=== PATIENT | male | born 1955 | race Caucasian/White ===

== ENCOUNTER → 2018-03-22 11:58 | Outpatient (CLI) | payer MEDICARE, SELFPAY ==
--- NOTE | 2018-03-22 12:06 | XR_ITS ---
XR chest 2V HISTORY: ITS.REASON: PNEUMONITIS, previous smoker ORDERING PHYSICIAN: Douglas Wang MD PATIENT AGE: 62 years COMPARISON: None FINDINGS: There are no previous exams available for comparison. The heart size is unremarkable. There is coarsening of bronchovascular markings with prominence of the interstitium consistent with smoking-related lung disease. There is patchy density in the left midlung laterally which could be due to an area of superimposed infiltrate versus chronic change. Cannot ascertain further without old films. Calcified nodes are present in the subcarinal region. No acute bony anomalies. IMPRESSION: Interstitial changes with patchy infiltrate versus fibrosis in the left midlung laterally
== END ==
PROVIDERS: PCP Emergency Medicine; Visit Provider Emergency Medicine
DX: J18.9 Pneumonia, unspecified organism (principal)
CPT/HCPCS: 71046

== ENCOUNTER 2020-01-07 14:05 | Emergency (ER) | payer MEDICARE, SELFPAY ==
[2020-01-07 14:17] VITALS: BP 152/106; PULSE 65; RESP 20; TEMP 36.8; O2SAT 97; BMI 31.3
--- NOTE | 2020-01-07 14:31 | HMH.EDUTC ---
[facility] Disposition Clinical Impression: Exposure to COVID-19 virus Disposition: Home, Self-Care Condition on Discharge: Good Instructions: Preventing the Spread of Coronavirus Discharge Instructions Additional Instructions: Drink plenty of fluids. Take tylenol for pain or fever. Follow up with your regular doctor. GO TO THE ER FOR ANY WORSENING SYMPTOMS FOLLOW THE DIRECTIONS ON THE COVID-19 HAND OUT THAT WE GAVE YOU REGARDING SELF-ISOLATION UNTIL YOU KNOW YOUR COVID-19 RESULTS Referrals: Douglas Wang MD [Primary Care Provider] - Time of Disposition: 14:33 Medical Decision Making - Medical Records Medical records reviewed: No: I reviewed the patient's medical records. - Tahir Inquiry Pt receiving controlled substance: No Vital Signs: 01/07/20 14:17 01/07/20 14:38 Temperature 98.3 F 98.3 F Temperature Source Oral Pulse Rate 65 Pulse Rate [Left Brachial] 65 Respiratory Rate 20 20 Blood Pressure 152/106 H Blood Pressure [Left Arm] 152/106 H Blood Pressure Mean [Left Arm] 121 Blood Pressure Source [Left Arm] Automatic Cuff Blood Pressure Position [Left Arm] Sitting 02 Sat by Pulse Oximetry 97 Oxygen Delivery Method Room Air [facility] HPI - General Stated complaint: covid exposure Time Seen by Provider: 01/07/20 14:31 Mode of Arrival: Ambulatory Source of Information: Patient Limitations: No Limitations Description of Symptoms (Recalled from Triage Doc. by RN): PATIENT REQUESTING COVID TEST. STATES LAST MONDAY HE WAS EXPOSED TO HIS DAUGHTER AND GRANDDAUGHTER WHO WERE POSITIVE. PATIENT DENIES ANY SYMPTOMS AT THIS TIME HEENT Symptoms (Recalled from RN notes): No Resp Symptoms (Recalled from RN notes): No Skin Symptoms (Recalled from RN notes): No MS Symptoms (Recalled from RN notes): No Functional Status (Recalled from RN notes): WNL - History of Present Illness Provider Complaint: He has been exposed to COVID-19 by being around his daughter and grand daughter. He denies any symptoms. - Related Data Allergies Allergy/AdvReac Type Severity Reaction Status Date / Time acetaminophen [From Lortab] Allergy Verified 01/07/20 14:22 hydrocodone [From Lortab] Allergy Verified 01/07/20 14:22 Penicillins Allergy Verified 01/07/20 14:22 - Worker's Comp Is this a Worker's Comp case?: No [facility] History - Hepatitis A Screen Drug use history?: No High risk sexual behaviors?: No History of sexually transmitted infection?: No Currently employed?: No Childcare worker?: No Do you have indoor plumbing?: Yes Do you have electricity?: Yes Attestation statement:: This patient has been screened for Hepatitis A risk factors. I have reviewed the patient's past medical history: Yes - Social History Alcohol Intake: current Occupational Status: other ROS Obtained: Yes All systems reviewed & no additional complaints - Constitutional Constitutional: Denies chills, Denies fever(s) - Eyes Eyes: Denies eye discharge - ENT Ears, Nose, Mouth, and Throat: Denies sore throat - Cardiovascular Cardiovascular: Denies chest pain - Respiratory Respiratory: No chest congestion, No cough Physical Exam - General General appearance: alert, in no apparent distress - Head Head exam: atraumatic, normocephalic, normal inspection - Eye Eye exam: Present: normal appearance, PERRL, EOMI - ENT ENT exam: Present: normal exam, normal oropharynx, mucous membranes moist, TM's normal bilaterally, normal external ear exam - Neck Neck exam: Present: normal inspection, full ROM, trachea midline. Absent: meningismus, lymphadenopathy - Chest Chest inspection: Present: normal inspection, symmetric chest wall rise. Absent: tenderness - Respiratory Respiratory exam: Present: normal lung sounds bilaterally. Absent: respiratory distress - Cardiovascular Cardiovascular exam: Present: regular rate, normal rhythm. Absent: JVD - Abdominal Exam Abdominal exam: Present: soft, normal
[2020-01-07 14:38] VITALS: BP 152/106; PULSE 65; RESP 20; TEMP 36.8; O2SAT 97
== END 2020-01-07 14:40 | disposition home or self-care (01) ==
PROVIDERS: Emergency Provider Nurse Practitioner Family; PCP Emergency Medicine
DX: Z20.828 Contact with and (suspected) exposure to other viral communicable diseases (principal); Z88.0 Allergy status to penicillin; Z88.5 Allergy status to narcotic agent
CPT/HCPCS: G0463; 99201; U0003

== ENCOUNTER → 2020-11-17 18:30 | Outpatient (CLI) | payer MEDICARE, SELFPAY ==
[2020-11-17 19:26] LABS: Basophils # 0.1 K/mm3 (0-0.2); Basophils % 1.1 % (0.1-2.0); Eosinophils # 0.2 K/mm3 (0.0-0.4); Eosinophils % 1.9 % (0.1-12.0); Hematocrit 47.2 % (42.0-52.0); Hemoglobin 15.8 g/dL (14.1-18.0); Lymphocytes # 2.9 K/mm3 (0.7-4.5); Lymphocytes % 28.2 % (10-50); Mean Corpuscular HGB Conc 33.4 g/dL (31.8-35.4); Mean Corpuscular Hemoglobin 31.1 pg (27.0-31.2); Mean Corpuscular Volume 93.2 fl (80-94); Mean Platelet Volume 10.1 fl (7.4-10.4); Monocytes # 0.7 K/mm3 (0.1-1.0); Monocytes % 6.7 % (1.7-9.3); Neutrophils # 6.5 K/mm3 (1.8-7.8); Platelet Count 185 K/mm3 (142-424); Red Blood Count 5.07 M/mm3 (4.60-6.20); Red Cell Distribution Width 14.6 % (11.5-17.5); White Blood Count 10.4 K/mm3 (4.8-10.8)
[2020-11-17 19:37] LABS: Alanine Aminotransferase 37 U/L (12-78); Albumin/Globulin Ratio 1.3 (1.1-1.8); Alkaline Phosphatase 102 U/L (38-126); Anion Gap 14.5 mEq/L (5-15); Aspartate Amino Transferase 38 U/L (17-59); Bilirubin,Total 0.4 mg/dl (0.2-1.3); Blood Urea Nitrogen 15 mg/dl (9-20); Calcium 8.8 mg/dl (8.4-10.2); Carbon Dioxide 26 mmol/L (22.0-30.0); Chloride 105 mmol/L (98-107); Chol/HDL Ratio 4.2 (1-3.5); Cholesterol 191 mg/dl (140-200); Estimated Glomerular Filt Rate 75 ml/min (>60); GFR (African American) 90 ML/MIN (>60); Globulin 3.1 g/dL (1.3-3.2); Glucose 124 mg/dl (74-100); HDL Cholesterol 45 mg/dl (40-60); Potassium 4.5 mmoL/L (3.5-5.1); Sodium 141 mmol/L (136-145); Total Protein,Serum 7.1 g/dl (6.3-8.2); Triglycerides 181 mg/dl (30-150); VLDL Cholesterol 36 mg/dL (0-40)
[2020-11-17 19:48] LABS: Direct LDL Cholesterol 115.82 mg/dL (100-129)
[2020-11-17 19:52] LABS: Erythrocyte Sedimentation Rate 16 mm/hr (0-20)
[2020-11-17 19:53] LABS: Free T4 (Free Thyroxine) 0.97 ng/dl (0.78-2.19)
[2020-11-17 19:54] LABS: 25-OH Vitamin D, Total 20.4 ng/mL (30-100)
[2020-11-17 20:07] LABS: Prostate Specific Ag Screen 0.3 ng/ml (0.0-4.0); Thyroid Stimulating Hormone 1.83 uIU/mL (0.465-4.68)
== END ==
PROVIDERS: Visit Provider Emergency Medicine
DX: R53.83 Other fatigue (principal); Z12.5 Encounter for screening for malignant neoplasm of prostate; E55.9 Vitamin D deficiency, unspecified; Z20.828 Contact with and (suspected) exposure to other viral communicable diseases; E78.5 Hyperlipidemia, unspecified
CPT/HCPCS: 80053; 80061; 82306; 84439; 84443; 85025; 85651; G0103

== ENCOUNTER → 2021-03-17 15:18 | Outpatient (CLI) | payer MEDICARE, SELFPAY ==
--- NOTE | 2021-03-17 15:22 | CT_ITS ---
PROCEDURE: CT LUNG SCREENING CLINICAL INDICATION: lung cancer screening COMPARISON: No exams were available for comparison TECHNIQUE: The exam was performed on a GE Light Speed [address] scanner using 2.90 mGy CTDI. A low dose helical CT CHEST was performed on a multi-detector scanner. All CT scans at the facility use one or more dose reduction, viz: automated exposure control, ma/kV adjustment per patient size (including targeted exams where dose is matched to indication, i.e. head), or iterative reconstruction technique. The LDCT was performed in a facility that meets the criteria for the screening program. Data regarding this exam was submitted to ACR which is an approved registry. The order for this exam indicates that it came as a result of a lung cancer screening counseling shard decision-making visit that included all the elements required of such a visit including smoking cessation. The radiologist interpreting this exam meets the CMS criteria for the LDCT lung cancer screening program. The exam is reported using the Lung-RADS classification scale and reported to the ACR registry. NOTE: This study was performed for the specific purposes of lung cancer screening and is not an alternative to diagnostic chest CT. RADIATION DOSE: CTDI vol(CT dose Index-volume) = 2.90mG DLP (Dose Length Product) = 96.38 FINDINGS: COPD with paraseptal and centrilobular emphysematous changes. Scattered areas of scarring. Evidence of old granulomatous disease. Mild pulmonary fibrosis in the upper lobes anteriorly and in the lung bases posteriorly. 7 mm noncalcified nodule left lower lobe image 53 series 601 and image 62 series 4. 4 mm noncalcified nodule left lower lobe posteriorly 61/4 Small bilateral axillary lymph nodes. Small mediastinal lymph nodes. Calcified subcarinal right hilar nodes. OTHER FINDINGS: No other pertinent findings evident. IMPRESSION: Lung-RADS Category 3 Probably Benign regarding left lower lobe nodules Follow-up: [address] Chest without contrast. 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
== END ==
PROVIDERS: PCP Emergency Medicine; Visit Provider Emergency Medicine
DX: Z87.891 Personal history of nicotine dependence (principal); Z12.2 Encounter for screening for malignant neoplasm of respiratory organs
CPT/HCPCS: 71271

== ENCOUNTER → 2021-03-23 07:51 | Outpatient (CLI) | payer MEDICARE, SELFPAY ==
--- NOTE | 2021-03-23 07:53 | US_ITS ---
APPROVED REPORT Exam Type: Ankle to Brachial Index Personal Care Worker: Yadira Kapadia CRT Indications Claudication: Rest Pain: Risk Factors Hyperlipidemia Diabetes History of Smoking Pressures/Indices Right Indices Left Indices Brachial 138.00 mmHg Brachial 152.00 mmHg Low Thigh 145.00 mmHg 0.95 Low Thigh 140.00 mmHg 0.92 Calf 164.00 mmHg 1.08 Calf 157.00 mmHg 1.03 Ankle(PT) 171.00 mmHg 1.13 Ankle(PT) 173.00 mmHg 1.14 Ankle(DP) 168.00 mmHg 1.11 Ankle(DP) 165.00 mmHg 1.09 Digit 147.00 mmHg 0.97 Digit 106.00 mmHg 0.70 Findings R JEANETTE 1.1 L JEANETTE 1.1 T JEANETTE 1.1 L TBI 0.7 Normal Waveforms Normal pulses Conclusion R JEANETTE 1.1 L JEANETTE 1.1 T JEANETTE 1.1 L TBI 0.7 Normal Waveforms Normal pulses Normal appearing resting noninvasive lower extremity arterial study. Electronically signed by : Dain Peace MD 03/23/2021 17:39:19
== END ==
PROVIDERS: PCP Emergency Medicine; Visit Provider Emergency Medicine
DX: I73.9 Peripheral vascular disease, unspecified (principal)
CPT/HCPCS: 93923

== ENCOUNTER → 2021-05-03 07:13 | Outpatient (CLI) | payer MEDICARE, SELFPAY ==
--- NOTE | 2021-05-03 | CA_ITS ---
APPROVED REPORT Exam: Pharmacologic Technologist: Niki Meza Ht: 5 ft 7 in Wt: 204 lbs BSA: 2.04 m2 HR: 48 bpm BP: 137/82 mmHg Indications: Chest pain, Heart murmur Medical History Medications: Omeprazole,,,,, Gabapentin,,,,, Vitamin D3,,,,, TAMSULOSIN,,,,, Celecoxib,,,,, Sertraline,,,,, Stress Test Details Test: LEXISCAN HR Resting HR: 57 bpm Max Heart Rate (APMHR): 154.315025 bpm Max HR Achieved: 94 bpm Target HR (85% APMHR): 130.325376 bpm % of APMHR: 61.04 Recovery HR: 71 bpm BP Resting BP: 137.0/82.0 mmHg Max BP: 144.0/78.0 mmHg Recovery BP: 135.0/82.0 mmHg ECG Resting ECG: Sinus Bradycardia Clinical Exercise duration: 04:00 min Highest Stage Achieved: Stress ECG Conclusion Lexiscan portion complete. Patient complained of shortness of breath during peak infusion. Symptoms: Shortness of breath during peak infusion, resolved in recovery. No chest pain. Arrhythmias/Ectopy: No ectopy ST-T Changes: Less than 1.[address] depression. Conclusion: Images to follow. Test Summary REST . . . . . . . Resting REST 04:10 . . 57 . 137/ 82 . . Stage 1 . . . . . . . Myoview Injected Stage 1 01:00 . . 89 . . . . Stage 2 01:00 . . 89 . . . . Stage 3 01:00 . . 77 . 138/ 80 . . Stage 4 01:00 . . 75 . 139/ 84 . Stop exercise at 04:00 RECOVERY 01:00 . . 72 . 139/ 83 . . RECOVERY 02:00 . . 74 . 139/ 83 . . RECOVERY 03:00 . . 72 . 135/ 82 . . RECOVERY 04:00 . . 74 . 135/ 82 . . Electronically signed by : Ramiro Chappell MD 05/03/2021 20:59:18
--- NOTE | 2021-05-03 07:13 | NM_ITS ---
APPROVED REPORT Exam: Nuclear Stress Test Indication: chest pain Patient Location: Outpatient Stress Tech: Niki Meza [place] Tech:EVGENY Donahue RT(R)(N) Ht: 5 ft 9 in Wt: 200 lbs HR: 48 bpm BP: 137/82 mmHg BSA: 2.07 m2 BMI: 29.5 History: chest pain Procedure: Patient received a 0.4 mg of intravenous Lexiscan, resting heart rate 48 bpm, resting blood pressure 137/82 mmHg, with Lexiscan maximum heart rate achived was 89 bpm which is Less than 85 % of the maximum predicted heart rate and blood pressure was 144/78 mmHg. With Lexiscan, patient denied any complaint of chest pain. Electrocardiogram Resting electrocardiogram shows sinus rhythm, with Lexiscan there is less than 1.[address] segment depression noted from the baseline EKG. The EKG portion of the Lexiscan is nondiagnostic. Cardiac Stress and Resting SPECT Images: Cardiac Stress and Resting SPECT images were obtained using technetium 99m Myoview 32.7 mCi stress and 10.66 mCi at rest. Gated SPECT for analysis of segmental wall motion and calculation of the ejection fraction also done. Cardiac stress and resting SPECT images show uniform myocardial activity without segmental perfusion abnormality, computer derived ejection fraction is 58% with no regional wall motion abnormality, right ventricle is normal size and contractility. Conclusion: 1. The EKG portion of the Lexiscan is nondiagnostic. 2. No scintigraphic evidence of reversible ischemia seen, computer derived ejection fraction 58% with no regional wall motion abnormality, right ventricle is normal size and contractility. 3. Normal Lexiscan Myoview study. Electronically signed by : Ramiro Chappell MD 05/03/2021 21:04:27
--- NOTE | 2021-05-03 07:21 | CA_ITS ---
APPROVED REPORT EXAM: Comprehensive 2D, Doppler, and color-flow Echocardiogram Regulatory Administrator: Yadira Kapadia CRT Ht: 5 ft 7 in Wt: 204lbs BSA: 2.04 BP: 130/82 mmHg Indications: Chest Pain, COPD, Murmur, Shortness of Breath, Obesity, GERD, Alcohol use, marijuana use 2D Dimensions LVOT 1.99 cm (M/F) 1.5-2.5 LA Volume 40.50 mL LA Volume Index 19.90 mL/m2 (M/F) 16-34 M-Mode Dimensions RVDd 2.68 cm (0.9-2.6) LA Diam 4.02 cm (1.9-4.0) LVDd 5.36 cm (3.5-5.7) Ao Diam 4.51 cm (2.0-3.7) LVDs 3.54 cm (3.5-5.7) IVSd 1.29 cm (0.6-1.1) PWd 0.50 cm (0.6-1.1) EF (Teich) 62.30% FS 34.00% EDV (Teich) 138.90 mL TAPSE 2.56 (<1.7) ESV (Teich) 52.30 mL LV Diastology E Decel Time 253.00 (160-240 msec) E/A Ratio 1.09 MED E' 7.80 (< 7 cm/sec) MED A' 10.70 cm/s E'/MED E' Ratio 7.42 (>14) LAT E' 9.10 (<10 cm/sec) LAT A' 9.70 cm/s E/LAT E' Ratio 6.36 (>14) Aortic Valve AO Peak GR. 7.00 mmHg Mitral Valve MV A Velocity 53.00 (40-130 cm/s) E/A Ratio 1.09 MV Decel. Time 253.00 (160-240 ms) Pulmonary Valve PV Peak Velocity 97.00 (50-150 cm/s) Tricuspid Valve TR P. Velocity 220.00 cm/s RAP Estimate 10.00 mmHg RVSP 29.40 mmHg Left Ventricle Left atrium is mildly enlarged, left ventricle is normal size, mild concentric left ventricular hypertrophy, visually estimated ejection fraction 55% with no regional wall motion abnormality, diastolic parameters are inconclusive. Right Ventricle Right atrium right ventricle mildly enlarged with normal contractility. Aortic Valve Aortic valve is minimally thickened and fibrosed, there is no aortic stenosis or aortic insufficiency. Mitral Valve Mitral valve grossly normal, there is trace mitral regurgitation. Tricuspid Valve Tricuspid valve grossly normal, there is trace tricuspid regurgitation, tricuspid regurgitation jet velocity is inadequate for calculation of the right ventricular systolic pressure. Pulmonic Valve Pulmonic valve is poorly visualized. Great Vessels Aortic root is normal size. Inferior vena cava is poorly visualized. Pericardium No significant pericardial effusion noted. Conclusion 1. Mild biatrial enlargement, normal left ventricular size, mild concentric left ventricular hypertrophy, visually estimated ejection fraction 55% with no regional wall motion abnormality, diastolic parameters are inconclusive. 2. Mildly enlarged right ventricle with normal contractility. 3. Trace mitral and tricuspid regurgitation. 4. No significant pericardial effusion noted. 5. Inferior vena cava is poorly visualized. Electronically signed by : Ramiro Chappell MD 05/03/2021 21:44:30
== END ==
PROVIDERS: PCP Emergency Medicine; Visit Provider Emergency Medicine
DX: R07.9 Chest pain, unspecified (principal); R01.1 Cardiac murmur, unspecified
CPT/HCPCS: 78452; 93017; 93306; A9502; J2785

== ENCOUNTER → 2021-05-28 08:35 | Outpatient (CLI) | payer MEDICARE, SELFPAY ==
--- NOTE | 2021-05-28 08:35 | MR_ITS ---
FINAL REPORT CLINICAL HISTORY: CHRONIC BACK PAIN. NKI. PAIN RUNS DOWN LEGS CAUSING WEAKNESS. FINDINGS: Multiplanar MR imaging of the lumbar spine was performed without contrast. On the sagittal T2-weighted images, there is abnormal decreased signal throughout the lumbar discs. There is moderate facet hypertrophy in the lower lumbar spine. The vertebrae are of normal height. The vertebral alignment is normal. L1-2: Mild diffuse disc bulge is present with mild bilateral neural foraminal narrowing. L2-3: Moderate diffuse disc bulge is present. There is moderate right and mild to moderate left neural foraminal narrowing. L3-4: Moderate diffuse disc bulge is present with moderate bilateral neural foraminal narrowing. L4-5: Moderate diffuse disc bulge is present with moderate to high-grade bilateral neural foraminal narrowing. L5-S1: Mild diffuse disc bulge is present with mild to moderate bilateral neural foraminal narrowing. IMPRESSION: Multilevel diffuse disc bulges, most evident at L4-5 with moderate to high-grade bilateral neural foraminal narrowing. Reviewed, Interpreted and Dictated by Scott Diane MD Transcribed by Zulay Ty Authenticated by Scott Diane MD on 05/28/2021 11:24:28 AM [facility]
== END ==
PROVIDERS: PCP Emergency Medicine; Visit Provider Emergency Medicine
DX: M54.50 Low back pain, unspecified (principal)
CPT/HCPCS: 72148; 76376

== ENCOUNTER → 2021-07-19 10:05 | Outpatient (CLI) | payer MEDICARE, SELFPAY ==
[2021-07-19 10:50] VITALS: PULSE 61
== END ==
PROVIDERS: PCP Emergency Medicine; Visit Provider Internal Medicine Pulmonary Disease
DX: R06.00 Dyspnea, unspecified (principal)
CPT/HCPCS: 94060; 94618; 94640; 94727; 94729

== ENCOUNTER → 2021-09-01 07:46 | Outpatient (CLI) | payer MEDICARE, SELFPAY ==
--- NOTE | 2021-09-01 07:55 | MR_ITS ---
FINAL REPORT CLINICAL HISTORY: memory loss, encephalopathy FINDINGS: Multiplanar MR imaging of the brain was performed without contrast. There is mild age-appropriate atrophy. There are scattered foci of increased T2 signal in the cerebral white matter that have a nonspecific appearance but likely represent moderate to severe chronic ischemic/gliotic changes. There is no evidence of intracranial hemorrhage or mass. No abnormal ventricular dilatation is identified. No abnormal extra-axial fluid collection is seen. No abnormality is seen on the diffusion weighted images. The posterior fossa and brainstem are unremarkable. Normal major vessel vascular flow voids are seen. IMPRESSION: Age-appropriate atrophy and moderate to severe chronic ischemic/gliotic changes. No acute intracranial abnormality. Reviewed, Interpreted and Dictated by Eligio Nayak III, MD Transcribed by Edwin Julien Authenticated by Eligio Nayak III, MD on 09/01/2021 09:53:02 AM [facility]
[2021-09-01 10:16] LABS: Basophils # 0.2 K/mm3 (0-0.2); Basophils % 2.2 % (0.1-2.0); Eosinophils # 0.2 K/mm3 (0.0-0.4); Eosinophils % 2.3 % (0.1-12.0); Hematocrit 55.1 % (42.0-52.0); Hemoglobin 17.9 g/dL (14.1-18.0); Lymphocytes # 2.1 K/mm3 (0.7-4.5); Lymphocytes % 20.5 % (10-50); Mean Corpuscular HGB Conc 32.4 g/dL (31.8-35.4); Mean Corpuscular Hemoglobin 32.8 pg (27.0-31.2); Mean Corpuscular Volume 101.2 fl (80-94); Mean Platelet Volume 8.5 fl (7.4-10.4); Monocytes # 0.5 K/mm3 (0.1-1.0); Monocytes % 4.9 % (1.7-9.3); Neutrophils % 70.2 % (37.0-80.0); Platelet Count 221 K/mm3 (142-424); Red Blood Count 5.44 M/mm3 (4.60-6.20); Red Cell Distribution Width 14.3 % (11.5-17.5)
[2021-09-01 10:37] LABS: Ammonia < 9 umol/L (9-30)
[2021-09-01 12:38] LABS: Alanine Aminotransferase 42 U/L (12-78); Albumin Level 4.2 g/dl (3.5-5.0); Albumin/Globulin Ratio 1.1 (1.1-1.8); Alkaline Phosphatase 95 U/L (38-126); Anion Gap 11.8 mEq/L (5-15); Aspartate Amino Transferase 46 U/L (17-59); Bilirubin,Total 0.4 mg/dl (0.2-1.3); Blood Urea Nitrogen 11 mg/dl (9-20); Calcium 9.5 mg/dl (8.4-10.2); Carbon Dioxide 29 mmol/L (22.0-30.0); Chloride 103 mmol/L (98-107); Estimated Glomerular Filt Rate 75 ml/min (>60); GFR (African American) 90 ML/MIN (>60); Globulin 3.8 g/dL (1.3-3.2); Glucose 107 mg/dl (74-100); Potassium 4.8 mmoL/L (3.5-5.1); Sodium 139 mmol/L (136-145)
[2021-09-01 13:18] LABS: Hemoglobin A1C 5.5 % (4.0-6.0)
[2021-09-01 13:43] LABS: Vitamin B12 722 pg/mL (239-931)
[2021-09-02 12:13] LABS: Rapid Plasma Reagin Ab Titer Non Reactive (NonRea<1:1)
[2021-09-02 14:37] LABS: Anti-Centromere B Antibodies <0.2 AI (0.0-0.9); Anti-DNA (DS) Ab Qn 1 IU/mL (0-9); Anti-Jo-1 <0.2 AI (0.0-0.9); Anti-Smith Antibody <0.2 AI (0.0-0.9); Antichromatin Antibodies <0.2 AI (0.0-0.9); Antiscleroderma-70 Antibodies <0.2 AI (0.0-0.9); RNP Antibodies <0.2 AI (0.0-0.9); Sjogren's Anti-SS-A 0.5 AI (0.0-0.9); Sjogren's Anti-SS-B <0.2 AI (0.0-0.9)
[2021-09-08 22:08] LABS: Vitamin B1 197.8 nmol/L (66.5-200.0)
== END ==
PROVIDERS: PCP Emergency Medicine; Visit Provider Nurse Practitioner Family
DX: G93.40 Encephalopathy, unspecified (principal); R41.3 Other amnesia; F10.10 Alcohol abuse, uncomplicated; R17 Unspecified jaundice; R73.9 Hyperglycemia, unspecified; F11.90 Opioid use, unspecified, uncomplicated
CPT/HCPCS: 36415; 70551; 80053; 82140; 82607; 82746; 83036; 84425; 84443; 85025; 86225; 86235; 86592; 95816

== ENCOUNTER → 2021-09-06 08:16 | Outpatient (POV) | payer MEDICARE, SELFPAY ==
[2021-09-06 08:51] VITALS: BP 130/96; PULSE 68; RESP 18; TEMP 36.3; O2SAT 95; BMI 33.3
--- NOTE | 2021-09-06 09:37 | HMH.PMCON ---
Assessment and Plan (1) Degenerative disc disease, lumbar Status: Acute Category: Medical Code(s): M51.36 - Other intervertebral disc degeneration, lumbar region (2) Facet arthropathy Status: Acute Category: Medical Code(s): M47.819 - Spondylosis without myelopathy or radiculopathy, site unspecified (3) Lumbar spondylosis Status: Acute Category: Medical Code(s): M47.816 - Spondylosis without myelopathy or radiculopathy, lumbar region (4) Bulging lumbar disc Status: Acute Category: Medical Code(s): M51.26 - Other intervertebral disc displacement, lumbar region - Assessment and plan all Dx Assessment and Plan for all problems:: Imaging: FINAL REPORT CLINICAL HISTORY: CHRONIC BACK PAIN. NKI. PAIN RUNS DOWN LEGS CAUSING WEAKNESS. FINDINGS: Multiplanar MR imaging of the lumbar spine was performed without contrast. On the sagittal T2-weighted images, there is abnormal decreased signal throughout the lumbar discs. There is moderate facet hypertrophy in the lower lumbar spine. The vertebrae are of normal height. The vertebral alignment is normal. L1-2: Mild diffuse disc bulge is present with mild bilateral neural foraminal narrowing. L2-3: Moderate diffuse disc bulge is present. There is moderate right and mild to moderate left neural foraminal narrowing. L3-4: Moderate diffuse disc bulge is present with moderate bilateral neural foraminal narrowing. L4-5: Moderate diffuse disc bulge is present with moderate to high-grade bilateral neural foraminal narrowing. L5-S1: Mild diffuse disc bulge is present with mild to moderate bilateral neural foraminal narrowing. IMPRESSION: Multilevel diffuse disc bulges, most evident at L4-5 with moderate to high-grade bilateral neural foraminal narrowing. Reviewed, Interpreted and Dictated by Scott Diane MD Transcribed by Zulay Ty Authenticated by Scott Diane MD on 05/28/2021 11:24:28 AM [facility] Plan: Patient has been having worsening low back pain for about a year and a half now. He has tried and failed other conservative therapies such as oral medication and home exercises with minimal relief of symptoms. He does have a positive Kemps test. His pain is worse with lumbar flexion, extension and rotation. He has some tenderness around the lumbar facets. We will schedule the patient for diagnostic medial branch blocks/facet injections at L3-L4 and L4-L5. Risks and benefits of the procedure have been explained to the patient. Patient would like to proceed with the procedure. He is not taking any blood thinners right now. Patient has been instructed to contact the clinic with any concerns before the next appointment. Dr. Martinez has reviewed this note and agrees with this plan of care. This note was dictated using voice recognition software and make contain errors or omissions. HPI - Data of Consult Patient: new to practice Consult date: 09/06/21 Requesting Physician: CRISTINE Barajas - Consult Narrative Reason for consult: low back pain History of present illness: Mr. Arroyo is a 65 year old male who presents today as a new patient. Patient is referred by Dr. Smith. Thank you for the referral. Patient presents today with worsening low back pain that started about a year and a half ago. Patient states that he has been having this nagging pain for several years but has gotten really worse more recently. He states that this is mostly localized in the low back. He does have some pain around his bilateral lower extremities but it could also be from his knees. Patient denies any recent falls or traumas or any other precipitating factors. This is worse with any lumbar flexion, extension and especially rotation. It is worse with any prolonged activity such as standing and walking. It does help whenever he sits down. Denies any loss of bowel and bladder function. He had a recent lumbar MRI that shows multilevel diffuse disc bulges, most lula
== END ==
PROVIDERS: Visit Provider Student in an Organized Health Care Education/Training Program
DX: M51.36 Other intervertebral disc degeneration, lumbar region (principal); M47.816 Spondylosis without myelopathy or radiculopathy, lumbar region; M51.26 Other intervertebral disc displacement, lumbar region; M19.90 Unspecified osteoarthritis, unspecified site
CPT/HCPCS: 99202; G0463

== ENCOUNTER 2021-09-10 11:28 | Day surgery (SDC) | payer MEDICARE, SELFPAY ==
[2021-09-10 11:51] VITALS: BP 136/74; PULSE 72; RESP 18; TEMP 36.6; O2SAT 98; BMI 33.3
--- NOTE | 2021-09-10 12:28 | P.PCN_ITS ---
- Procedure Date: 09/10/21 Time: 12:28 Anesthesiologist:: Darrick Pete CRNA Complications:: None Pre-procedure Diagnosis:: Degenerative disc disease lumbar spine. Lumbar facet arthropathy multilevel L3- 4, L4-5, L5-S1. Multilevel disc bulge lumbar spine. Lumbar radiculopathy symptoms. Post-procedure Diagnosis:: Same Indications for Procedure:: This patient is a pleasant 65-year-old male that comes to our injection clinic today for bilateral L3-4, L4-5 facet blocks. Patient's lumbar MRI shows multilevel disc bulge lumbar spine. Also facet arthropathy multilevels. He rates his back pain 7/10. Has some radicular symptoms into his hips. Procedure Details:: Informed consent was obtained and the risk and benefits of the procedure was explained to the patient. Patient was taken to the procedure room where noninvasive monitors were placed, including noninvasive blood pressure cuff as well as pulse oximeter. The area over the lumbar spine was cleansed using chlorhexidine as a cleansing solution. I anesthetized the skin and subcutaneous tissues with 1% Lidocaine. I placed 22-gauge spinal needles into the facet joint/ medial branches of [L3-L4, L4-L5 bilaterally. Needle placement was confirmed with fluoroscopy. After confirmation of needle placement, each site was injected with 1 mL of 1% lidocaine and 0.25 % Marcaine and 10 mg of Depo-Medrol. A total of 80 mg of depo medrol was used for bilateral medial branch blocks of [L3-L4, L4-L5 bilaterally. Patient tolerated the procedure without difficulty. There were no complications. Plan and Disposition:: Patient was discharged without incident.
[2021-09-10 12:31] VITALS: BP 148/56; PULSE 78; RESP 18; O2SAT 97
[2021-09-10 12:32] VITALS: BP 152/79; PULSE 57; RESP 20; O2SAT 96
[2021-09-10 12:47] VITALS: BP 141/87; PULSE 63; RESP 20; O2SAT 98
== END 2021-09-10 12:48 | disposition home or self-care (01) ==
LOC: SC.PAINP 11:30
PROVIDERS: PCP Emergency Medicine; Visit Provider Nurse Anesthetist, Certified Registered
DX: M51.37 Other intervertebral disc degeneration, lumbosacral region (principal); M51.16 Intervertebral disc disorders with radiculopathy, lumbar region; M54.06 Panniculitis affecting regions of neck and back, lumbar region; M47.896 Other spondylosis, lumbar region
CPT/HCPCS: 64493; 64494; J1040

== ENCOUNTER → 2021-09-16 08:11 | Outpatient (POV) | payer MEDICARE, SELFPAY ==
[2021-09-16 08:55] VITALS: BP 139/84; PULSE 70; RESP 20; TEMP 36.8; O2SAT 98; BMI 33.3
--- NOTE | 2021-09-16 09:03 | HMH.PAINSOAP ---
[facility] Pain Management SOAP Note Subjective:: Patient is a pleasant 65 yo male who presents today for follow up after an MBB bilaterally at L3-L4 and L4-L5. Patient is currently being managed for DDD lumbar, lumbar facet arthropathy, lumbar spondylosis. After the procedure, pt states that he had minimal relief. He says that he had a lot of pain for 1-2 days after the injection. He states that his pain is back to baseline today. Pain is worse with lumbar flexion, extension, and rotation. Patient continues to have LBP that radiates to BLE. He is unsure if the pain on his legs are from his knees or back. Rates pain today as 5/10. Lumbar MRI shows facet arthropathy at L3-L4, L4-L5, and L5-S1. Has multilevel DDD lumbar. Tahir [id number], MEQ 15. For pain, he is prescribed Gabapentin 600mg TID, Percocet 5mg BID that are prescribed by Dr. Smith. He states that he is not taking the percocet because it was not helping his pain as much and causing him to be groggy. Review of Systems: General: No recent weight changes, no fever, no sleep disturbances Respiratory: No cough, no shortness of air, no recurring pulmonary infections Cardiovascular/peripheral vascular: No chest pain, no palpitations, no edema, no shortness of breath Gastrointestinal: No new onset incontinence, normal bowel movements reported Genitourinary: No new onset incontinence Musculoskeletal: Low back pain Psychiatric: [Normal mood/affect] Neurological: [Denies weakness in extremities], [denies balance issues] Objective:: Physical Exam: General: Alert and oriented x3, no acute distress, pleasant and cooperative Lungs: Respirations even and unlabored, symmetrical chest expansion Eyes: PERRL Musculoskeletal: Flexion and extension of lumbar [spine] somewhat guarded secondary to pain, [antalgic gait noted] Neurological: Speech clear, no gross sensory deficit Assessment:: Degenerative disc disease of lumbar spine with lumbar radiculopathy symptoms, facet arthropathy, lumbar spondylosis Plan:: Imaging: Ordering Physician: Donavan Smith MD Date of Service: 05/28/21 Procedure(s): MR lumbar spine wo con Accession Number(s): [id number] cc: Donavan Smith MD; Scott Diane MD~ FINAL REPORT CLINICAL HISTORY: CHRONIC BACK PAIN. NKI. PAIN RUNS DOWN LEGS CAUSING WEAKNESS. FINDINGS: Multiplanar MR imaging of the lumbar spine was performed without contrast. On the sagittal T2-weighted images, there is abnormal decreased signal throughout the lumbar discs. There is moderate facet hypertrophy in the lower lumbar spine. The vertebrae are of normal height. The vertebral alignment is normal. L1-2: Mild diffuse disc bulge is present with mild bilateral neural foraminal narrowing. L2-3: Moderate diffuse disc bulge is present. There is moderate right and mild to moderate left neural foraminal narrowing. L3-4: Moderate diffuse disc bulge is present with moderate bilateral neural foraminal narrowing. L4-5: Moderate diffuse disc bulge is present with moderate to high-grade bilateral neural foraminal narrowing. L5-S1: Mild diffuse disc bulge is present with mild to moderate bilateral neural foraminal narrowing. IMPRESSION: Multilevel diffuse disc bulges, most evident at L4-5 with moderate to high-grade bilateral neural foraminal narrowing. Reviewed, Interpreted and Dictated by Scott Diane MD Transcribed by Zulay Ty Authenticated by Scott Diane MD on 05/28/2021 11:24:28 AM [facility] Plan: Patient had minimal relief after the diagnostic medial branch block/facet injections at L3-L4 and L4-L5. Patient continues to have increasing low back pain that radiates to bilateral lower extremities. He takes gabapentin and Percocet that provides some relief. He is not taking that much percocet. He wants to be weaned off of medications. I will schedule the patient for a LESI L4-L5. Risks and benefits of the procedure have been explained to the patient. Patient would
== END ==
PROVIDERS: Visit Provider Student in an Organized Health Care Education/Training Program
DX: M51.16 Intervertebral disc disorders with radiculopathy, lumbar region (principal); M47.26 Other spondylosis with radiculopathy, lumbar region
CPT/HCPCS: 99212; G0463

== ENCOUNTER → 2021-09-21 20:37 | Outpatient (CLI) | payer MEDICARE, SELFPAY | PROVIDERS: PCP Emergency Medicine; Visit Provider Nurse Practitioner Family | DX: R06.83 Snoring; G47.30 Sleep apnea, unspecified; G47.9 Sleep disorder, unspecified | CPT/HCPCS: 95810 ==

== ENCOUNTER → 2021-09-24 06:41 | Outpatient (CLI) | payer MEDICARE, SELFPAY ==
--- NOTE | 2021-09-24 06:42 | CT_ITS ---
FINAL REPORT TECHNIQUE: Axial CT images were performed from the lung apices through the upper abdomen. Coronal reformats were submitted. This study was performed with techniques to keep radiation doses as low as reasonably achievable (ALARA). Individualized dose reduction techniques using automated exposure control or adjustment of mA and/or kV according to the patient's size were employed. CLINICAL HISTORY: pulmonary nodule seen on CT lung screen COMPARISON: March 17, 2021 FINDINGS: There is no axillary adenopathy. There are multiple borderline size mediastinal nodes. No axillary mass or adenopathy. Heart size is normal. There is no pericardial or pleural effusion. Limited images of the upper abdomen demonstrate mild fatty liver. There are moderate changes of emphysema. There is mild scarring in the lung bases. There is a stable 7 mm left lower lobe nodule best seen on image 67. There is a stable 3 mm lateral left lower lobe nodule. There is mild dependent atelectasis. There is a calcified granuloma in the right lower lobe. No new mass or nodule is noted. IMPRESSION: Stable small left lower lobe nodules. Recommend additional follow-up low-dose screening in 12 months. Reviewed, Interpreted and Dictated by Eligio Nayak III, MD Transcribed by Daphne Jaime Authenticated and . [facility]
== END ==
PROVIDERS: PCP Emergency Medicine; Visit Provider Emergency Medicine
DX: R91.1 Solitary pulmonary nodule (principal)
CPT/HCPCS: 71250

== ENCOUNTER 2021-10-01 12:38 | Day surgery (SDC) | payer MEDICARE, SELFPAY ==
[2021-10-01 13:16] VITALS: BP 136/77; PULSE 84; RESP 18; TEMP 36.6; O2SAT 96; BMI 32.4
[2021-10-01 13:46] VITALS: BP 132/74; BP 133/75; PULSE 75; RESP 18; O2SAT 98
--- NOTE | 2021-10-01 13:49 | P.PCN_ITS ---
- Procedure Date: 10/01/21 Time: 13:49 Anesthesiologist:: Bry Martinez MD Complications:: None Pre-procedure Diagnosis:: Degenerative disc disease of lumbar spine with lumbar radiculopathy symptoms Post-procedure Diagnosis:: Same Indications for Procedure:: Patient is a pleasant 65-year-old white male who we are treating for low back pain and lumbar radicular symptoms. He has increasing pain in his back radiating down both legs left greater than right. He has had 1 lumbar epidural steroid injection and it was very painful. He did get some relief. We will plan on lumbar epidural steroid injection today to see if this will help further with his pain symptoms. Procedure Details:: Informed consent was obtained and the risk and benefits of the procedure was explained to the patient. The patient was taken to the procedure room. The patient was placed prone on the procedure table. The patient was prepped and draped in sterile fashion. C-arm fluoroscopy was used to view the lumbar spine. Skin and subcutaneous tissues were anesthetized using lidocaine. I placed an 18-gauge epidural needle and advanced into the L4-L5 interspace using fluoroscop ic guidance and [id number] to air. After confirmation of needle placement in the epidural space with dye I injected 2 mL of lidocaine 1.5% with Depo-Medrol 80 mg. Patient tolerated the procedure well with no complications. Plan and Disposition:: We will follow-up with him in 2 weeks. Will reevaluate symptoms at that time.
[2021-10-01 13:50] VITALS: BP 161/91; PULSE 64; RESP 20; O2SAT 95
== END 2021-10-01 13:51 | disposition home or self-care (01) ==
LOC: SC.PAINP 12:40
PROVIDERS: PCP Emergency Medicine; Visit Provider Anesthesiology
DX: M51.16 Intervertebral disc disorders with radiculopathy, lumbar region (principal)
CPT/HCPCS: 62323; J1040; Q9966

== ENCOUNTER → 2022-01-05 10:31 | Outpatient (CLI) | payer MEDICARE, SELFPAY ==
[2022-01-05 13:33] LABS: Amphetamine/Metha Screen,Urine Negative ng/ml (<1000)
[2022-01-05 13:34] LABS: Barbiturates Screen,Urine Negative ng/ml (<200); Benzodiazepines Screen,Urine Negative ng/ml (<200)
[2022-01-05 13:35] LABS: Cannabinoid Screen,Urine Negative ng/ml (<50)
[2022-01-05 13:36] LABS: Cocaine Screen,Urine Negative ng/ml (<300); Methadone Screen,Urine Negative ng/ml (<300)
[2022-01-05 13:37] LABS: Opiate Screen,Urine Negative ng/ml (<300); Phencyclidine Screen,Urine Negative ng/ml (<25)
== END ==
PROVIDERS: PCP Emergency Medicine; Visit Provider Emergency Medicine
DX: M51.36 Other intervertebral disc degeneration, lumbar region (principal)
CPT/HCPCS: 80305

== ENCOUNTER 2022-01-31 12:03 | Emergency (ER) | payer MEDICARE, SELFPAY ==
[2022-01-31 13:25] VITALS: BP 147/116; PULSE 70; RESP 20; TEMP 36.9; O2SAT 95; BMI 31.3
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
[2022-01-31 13:59] VITALS: BP 147/116; PULSE 70; RESP 20; TEMP 36.9; O2SAT 95
== END 2022-01-31 14:02 | disposition home or self-care (01) ==
PROVIDERS: Emergency Provider Nurse Practitioner Family; PCP Emergency Medicine
DX: T23.262A Burn of second degree of back of left hand, initial encounter (principal); K21.9 Gastro-esophageal reflux disease without esophagitis; J44.9 Chronic obstructive pulmonary disease, unspecified; F32.A Depression, unspecified; R06.02 Shortness of breath; R11.2 Nausea with vomiting, unspecified; Z79.51 Long term (current) use of inhaled steroids; Z79.82 Long term (current) use of aspirin; Z79.899 Other long term (current) drug therapy; Z88.5 Allergy status to narcotic agent; Z88.6 Allergy status to analgesic agent; Z88.8 Allergy status to other drugs, medicaments and biological substances; Z23 Encounter for immunization; Z82.49 Family history of ischemic heart disease and other diseases of the circulatory system; Z83.3 Family history of diabetes mellitus
CPT/HCPCS: 90471; 90715; 99213; G0463

== ENCOUNTER → 2022-03-04 16:31 | Outpatient (CLI) | payer MEDICARE, SELFPAY ==
[2022-03-04 16:20] LABS: Amphetamine/Metha Screen,Urine Negative ng/ml (<1000)
[2022-03-04 16:21] LABS: Barbiturates Screen,Urine Negative ng/ml (<200); Benzodiazepines Screen,Urine Negative ng/ml (<200)
[2022-03-04 16:22] LABS: Cannabinoid Screen,Urine Negative ng/ml (<50)
[2022-03-04 16:23] LABS: Cocaine Screen,Urine Negative ng/ml (<300); Methadone Screen,Urine Negative ng/ml (<300)
[2022-03-04 16:24] LABS: Opiate Screen,Urine Negative ng/ml (<300)
[2022-03-04 16:32] LABS: Phencyclidine Screen,Urine Negative ng/ml (<25)
== END ==
PROVIDERS: PCP Emergency Medicine; Visit Provider Emergency Medicine
DX: M51.36 Other intervertebral disc degeneration, lumbar region (principal)
CPT/HCPCS: 80305

== ENCOUNTER → 2022-05-31 09:04 | Outpatient (CLI) | payer MEDICARE, SELFPAY ==
[2022-05-31 15:32] LABS: Amphetamine/Metha Screen,Urine Negative ng/ml (<1000)
[2022-05-31 15:33] LABS: Barbiturates Screen,Urine Negative ng/ml (<200)
[2022-05-31 15:35] LABS: Benzodiazepines Screen,Urine Negative ng/ml (<200); Cannabinoid Screen,Urine Negative ng/ml (<50)
[2022-05-31 15:36] LABS: Methadone Screen,Urine Negative ng/ml (<300)
[2022-05-31 15:37] LABS: Opiate Screen,Urine Negative ng/ml (<300)
[2022-05-31 15:38] LABS: Phencyclidine Screen,Urine Negative ng/ml (<25)
[2022-05-31 15:44] LABS: Cocaine Screen,Urine Negative ng/ml (<300)
== END ==
PROVIDERS: PCP Emergency Medicine; Visit Provider Emergency Medicine
DX: M51.36 Other intervertebral disc degeneration, lumbar region (principal)
CPT/HCPCS: 80305

== ENCOUNTER → 2022-07-26 09:03 | Outpatient (CLI) | payer MEDICARE, SELFPAY ==
[2022-07-26 16:07] LABS: Amphetamine/Metha Screen,Urine Negative ng/ml (<1000)
[2022-07-26 16:08] LABS: Barbiturates Screen,Urine Negative ng/ml (<200); Benzodiazepines Screen,Urine Negative ng/ml (<200)
[2022-07-26 16:09] LABS: Cannabinoid Screen,Urine Negative ng/ml (<50)
[2022-07-26 16:16] LABS: Cocaine Screen,Urine Negative ng/ml (<300)
[2022-07-26 16:17] LABS: Methadone Screen,Urine Negative ng/ml (<300); Opiate Screen,Urine Negative ng/ml (<300)
[2022-07-26 16:18] LABS: Phencyclidine Screen,Urine Negative ng/ml (<25)
== END ==
PROVIDERS: PCP Emergency Medicine; Visit Provider Emergency Medicine
DX: M51.36 Other intervertebral disc degeneration, lumbar region (principal); Z79.899 Other long term (current) drug therapy
CPT/HCPCS: 80305

== ENCOUNTER → 2022-08-09 11:37 | Outpatient (CLI) | payer MEDICARE, SELFPAY ==
--- NOTE | 2022-08-09 11:40 | XR_ITS ---
FINAL REPORT CLINICAL HISTORY: Ankle Pain FINDINGS: Right ankle Three views were obtained. There is no acute fracture or dislocation. The joint spaces appear normal. No soft tissue abnormality is identified. IMPRESSION: No acute process. Reviewed, Interpreted and Dictated by Carlos Manuel Sal MD Transcribed by Zulay Ty Authenticated and . [facility]
--- NOTE | 2022-08-09 11:40 | XR_ITS ---
FINAL REPORT CLINICAL HISTORY: Foot Pain FINDINGS: Left foot Three views were obtained. There is no acute fracture or dislocation. The joint spaces appear normal. No soft tissue abnormality is identified. IMPRESSION: No acute process. Reviewed, Interpreted and Dictated by Carlos Manuel Sal MD Transcribed by Zulay Ty Authenticated and [facility]
--- NOTE | 2022-08-09 11:40 | XR_ITS ---
FINAL REPORT CLINICAL HISTORY: Ankle Pain FINDINGS: Left ankle Three views were obtained. There is no acute fracture or dislocation. The joint spaces appear normal. No soft tissue abnormality is identified. IMPRESSION: No acute process. Reviewed, Interpreted and Dictated by Carlos Manuel Sal MD Transcribed by Zulay Ty Authenticated and [facility]
--- NOTE | 2022-08-09 11:40 | XR_ITS ---
FINAL REPORT CLINICAL HISTORY: Foot Pain FINDINGS: Right foot Three views were obtained. There is no acute fracture or dislocation. The joint spaces appear normal. No soft tissue abnormality is identified. There is a tiny benign bone cyst in the 1st proximal phalanx. No other focal bony lesion is identified. IMPRESSION: No acute process. Reviewed, Interpreted and Dictated by Carlos Manuel Sal MD Transcribed by Zulay Ty Authenticated and [facility]
== END ==
PROVIDERS: PCP Emergency Medicine; Visit Provider Podiatrist
DX: M79.671 Pain in right foot; M79.672 Pain in left foot; M25.571 Pain in right ankle and joints of right foot; M25.572 Pain in left ankle and joints of left foot
CPT/HCPCS: 73610; 73630

== ENCOUNTER → 2022-09-19 13:42 | Outpatient (CLI) | payer MEDICARE, SELFPAY ==
[2022-09-19 13:43] LABS: Basophils # 0.1 K/mm3 (0-0.2); Basophils % 0.5 % (0.1-2.0); Eosinophils # 0.2 K/mm3 (0.0-0.4); Eosinophils % 1.8 % (0.1-12.0); Hematocrit 48.2 % (42.0-52.0); Hemoglobin 15.7 g/dL (14.1-18.0); Lymphocytes # 3.2 K/mm3 (0.7-4.5); Lymphocytes % 30.2 % (10-50); Mean Corpuscular HGB Conc 32.6 g/dL (31.8-35.4); Mean Corpuscular Hemoglobin 31.3 pg (27.0-31.2); Mean Platelet Volume 9.9 fl (7.4-10.4); Monocytes # 0.6 K/mm3 (0.1-1.0); Neutrophils # 6.6 K/mm3 (1.8-7.8); Neutrophils % 61.5 % (37.0-80.0); Platelet Count 183 K/mm3 (142-424); Red Blood Count 5.02 M/mm3 (4.60-6.20); Red Cell Distribution Width 14.4 % (11.5-17.5); White Blood Count 10.7 K/mm3 (4.8-10.8)
[2022-09-19 14:07] LABS: Alanine Aminotransferase 70 U/L (12-78); Albumin Level 3.9 g/dl (3.5-5.0); Albumin/Globulin Ratio 1.4 (1.1-1.8); Alkaline Phosphatase 100 U/L (38-126); Anion Gap 14.3 mEq/L (5-15); Aspartate Amino Transferase 56 U/L (17-59); Bilirubin,Total 0.5 mg/dl (0.2-1.3); Blood Urea Nitrogen 20 mg/dl (9-20); Calcium 8.7 mg/dl (8.4-10.2); Carbon Dioxide 25 mmol/L (22.0-30.0); Chloride 104 mmol/L (98-107); Chol/HDL Ratio 3.7 (1-3.5); Cholesterol 204 mg/dl (140-200); Estimated Glomerular Filt Rate 67 ml/min (>60); GFR (African American) 81 ML/MIN (>60); Globulin 2.8 g/dL (1.3-3.2); Glucose 104 mg/dl (74-100); HDL Cholesterol 55 mg/dl (40-60); Potassium 4.3 mmoL/L (3.5-5.1); Sodium 139 mmol/L (136-145); Total Protein,Serum 6.7 g/dl (6.3-8.2); Triglycerides 198 mg/dl (30-150); VLDL Cholesterol 40 mg/dL (0-40)
[2022-09-19 14:18] LABS: Direct LDL Cholesterol 110.27 mg/dL (100-129)
[2022-09-19 14:21] LABS: Amphetamine/Metha Screen,Urine Negative ng/ml (<1000); Barbiturates Screen,Urine Negative ng/ml (<200)
[2022-09-19 14:22] LABS: Benzodiazepines Screen,Urine Negative ng/ml (<200); Cannabinoid Screen,Urine Positive ng/ml (<50)
[2022-09-19 14:23] LABS: Cocaine Screen,Urine Negative ng/ml (<300)
[2022-09-19 14:24] LABS: Methadone Screen,Urine Negative ng/ml (<300); Opiate Screen,Urine Negative ng/ml (<300)
[2022-09-19 14:24] LABS: Free T4 (Free Thyroxine) 1.15 ng/dl (0.78-2.19)
[2022-09-19 14:25] LABS: 25-OH Vitamin D, Total 52.5 ng/mL (30-100)
[2022-09-19 14:25] LABS: Phencyclidine Screen,Urine Negative ng/ml (<25)
[2022-09-19 14:40] LABS: Prostate Specific Ag Screen 0.3 ng/ml (0.0-4.0); Thyroid Stimulating Hormone 2.65 uIU/mL (0.465-4.68)
== END ==
PROVIDERS: PCP Emergency Medicine; Visit Provider Emergency Medicine
DX: Z79.899 Other long term (current) drug therapy (principal); E66.9 Obesity, unspecified; E05.90 Thyrotoxicosis, unspecified without thyrotoxic crisis or storm; E55.9 Vitamin D deficiency, unspecified; Z12.5 Encounter for screening for malignant neoplasm of prostate; Z68.31 Body mass index [BMI] 31.0-31.9, adult
CPT/HCPCS: 80053; 80061; 80305; 82306; 84439; 84443; 85025; G0103

== ENCOUNTER → 2022-12-13 15:46 | Outpatient (CLI) | payer MEDICARE, SELFPAY ==
[2022-12-13 14:00] LABS: Amphetamine/Metha Screen,Urine Negative ng/ml (<1000)
[2022-12-13 14:01] LABS: Barbiturates Screen,Urine Negative ng/ml (<200)
[2022-12-13 14:05] LABS: Benzodiazepines Screen,Urine Negative ng/ml (<200)
[2022-12-13 14:06] LABS: Cannabinoid Screen,Urine Negative ng/ml (<50); Cocaine Screen,Urine Negative ng/ml (<300)
[2022-12-13 14:08] LABS: Methadone Screen,Urine Negative ng/ml (<300); Opiate Screen,Urine Negative ng/ml (<300)
[2022-12-13 14:09] LABS: Phencyclidine Screen,Urine Negative ng/ml (<25)
== END ==
PROVIDERS: PCP Emergency Medicine; Visit Provider Emergency Medicine
DX: Z79.899 Other long term (current) drug therapy (principal)
CPT/HCPCS: 80305

== ENCOUNTER → 2022-12-21 06:36 | Outpatient (CLI) | payer MEDICARE, SELFPAY ==
--- NOTE | 2022-12-21 06:40 | NM_ITS ---
APPROVED REPORT Exam: Nuclear Stress Test Indication: fatigue..soa..chest pain.high cholesterol..family hx Patient Location: Outpatient Stress Tech: Niki Meza [facility] Tech:Rashida BrownEVGENY RT(R)(N) Ht: 5 ft 5 in Wt: 200 lbs HR: 52 bpm BP: 143/93 mmHg BSA: 1.98 m2 Rhythm: NSR TID: 1.09 BMI: 33.2 History: fatigue..soa..chest pain.high cholesterol..family hx Procedure: Patient received 0.4 mg of intravenous Lexiscan, resting heart rate 52 bpm, resting blood pressure 143/93 mmHg, with Lexiscan maximum heart rate achieved was 91 bpm which is 85 % of the maximum predicted heart rate and blood pressure was 157/91 mmHg. Cardiac Stress and Resting SPECT Images: Cardiac Stress and Resting SPECT images were obtained using technetium 99m Myoview 31.5 mCi stress and 10.53 mCi at rest. Resting and stress imaging in supine and prone positions demonstrate a large-sized, mild, partially reversible perfusion defect in the inferior LV wall from the base and extending distally towards the inferoapical LV region. Gated imaging demonstrates mild reduction in global and regional LV systolic function. LVEF is calculated at 48%. Conclusion: Large-sized, mild, partially reversible perfusion defect in the inferior LV wall from the base and extending distally towards the inferoapical LV region. FIndings are suggestive of partial reversible ischemia. Gated imaging demonstrates mild reduction in global and regional LV systolic function. LVEF is calculated at 48%. Electronically signed by : Beryl Fregoso MD 12/25/2022 19:52:34
--- NOTE | 2022-12-21 10:13 | CA_ITS ---
APPROVED REPORT Ht: 5 ft 9 in Wt: 199 lbs BSA: 2.06 m2 HR: 52 bpm BP: 143/93 mmHg Rhythm: NSR Indications: Chest pain Medical History Medical History: Chest pain, dyspnea Stress Test Details Reason for pharmacologic stress test: physical limitation. HR Resting HR: 52 bpm Max Heart Rate (APMHR): 152 bpm Max HR Achieved: 91 bpm Target HR (85% APMHR): 129 bpm % of APMHR: 60 Recovery HR: 71 bpm BP Resting BP: 143.0/93.0 mmHg Max BP: 157.0/91.0 mmHg ECG Resting ECG: Normal sinus rhythm Stress ECG: No ST changess Arrhythmia: PVCs Clinical Reason for Termination: Dyspnea Exercise duration: 4.00 min Exercise capacity: 1.0 METs Stress ECG Conclusion The patient developed mild dyspnea following Lexiscan administration. ECG: Normal sinus rhythm, no ST changes at baseline Stress ECG: No ST changes. Ectopy/Arrhythmias: PVCs CONCLUSION Unremarkable Lexiscan stress test. Myoview images are reported separately. Electronically signed by : Beryl Fregoso MD 12/25/2022 19:48:19
== END ==
PROVIDERS: PCP Emergency Medicine; Visit Provider Physician Assistant
DX: I20.8 Other forms of angina pectoris (principal); I73.9 Peripheral vascular disease, unspecified; R06.00 Dyspnea, unspecified
CPT/HCPCS: 78452; 93017; A9502; J2785

== ENCOUNTER → 2023-01-04 12:26 | Outpatient (CLI) | payer MEDICARE, SELFPAY ==
--- NOTE | 2023-01-04 12:50 | CA_ITS ---
APPROVED REPORT EXAM: Comprehensive 2D, Doppler, and color-flow Echocardiogram Pr Intern: Yadira Kapadia CRT Ht: 5 ft 9 in Wt: 199lbs BSA: 2.06 BP: 108/74 mmHg Indications: Chest Pain, COPD 2D Dimensions LVOT 1.92 cm (M/F) 1.5-2.5 LA Volume 46.80 mL LA Volume Index 22.20 mL/m2 (M/F) 16-34 M-Mode Dimensions RVDd 3.08 cm (0.9-2.6) LA Diam 3.34 cm (1.9-4.0) LVDd 4.97 cm (3.5-5.7) Ao Diam 4.13 cm (2.0-3.7) LVDs 2.36 cm (3.5-5.7) IVSd 1.61 cm (0.6-1.1) PWd 0.75 cm (0.6-1.1) EF (Teich) 83.40% FS 52.50% EDV (Teich) 116.60 mL TAPSE 2.54 (<1.7) ESV (Teich) 19.30 mL LV Diastology E Decel Time 150.00 (160-240 msec) E/A Ratio 0.87 MED E' 7.20 (< 7 cm/sec) MED A' 10.70 cm/s E'/MED E' Ratio 7.74 (>14) LAT E' 7.80 (<10 cm/sec) LAT A' 14.20 cm/s E/LAT E' Ratio 7.14 (>14) Aortic Valve AO Peak GR. 8.20 mmHg Mitral Valve MV A Velocity 64.00 (40-130 cm/s) E/A Ratio 0.87 MV Decel. Time 150.00 (160-240 ms) Pulmonary Valve PV Peak Velocity 222.00 (50-150 cm/s) Tricuspid Valve TR P. Velocity 164.00 cm/s RAP Estimate 10.00 mmHg RVSP 20.70 mmHg Left Ventricle The left ventricle is normal size. The left ventricular systolic function is normal. The left ventricular ejection fraction is within the normal range. There is normal left ventricular wall thickness. There is normal LV segmental wall motion. The left ventricular diastolic function is normal. LVEF is 55% Right Ventricle The right ventricle is normal size. The right ventricular systolic function is normal. Atria The left atrium size is normal. The right atrium size is normal. There is no Doppler evidence of interatrial shunt. Aortic Valve The aortic valve is trileaflet. The aortic valve opens well. There is no aortic valvular stenosis. No aortic regurgitation is present. Mitral Valve The mitral valve is normal in structure. No evidence of mitral valve stenosis. Trace mitral regurgitation. Tricuspid Valve The tricuspid valve leaflets are thin and pliable. Trace tricuspid regurgitation. RVSP is normal. Pulmonic Valve The pulmonary valve is normal in structure. Trace pulmonic regurgitation. Great Vessels The aortic root is normal in size. The ascending aorta is not well visualized. IVC is normal in size and collapses >50% with inspiration. Pericardium There is no pericardial effusion. Other Information Study Quality: Adequate Conclusion Normal biventricular systolic function. No significant valvular stenosis or regurgitation. Electronically signed by : Beryl Fregoso MD 01/04/2023 21:53:22
== END ==
PROVIDERS: PCP Emergency Medicine; Visit Provider Physician Assistant
DX: I73.9 Peripheral vascular disease, unspecified; I20.89 Other forms of angina pectoris; R06.09 Other forms of dyspnea; R07.9 Chest pain, unspecified; J44.9 Chronic obstructive pulmonary disease, unspecified; R94.31 Abnormal electrocardiogram [ECG] [EKG]
CPT/HCPCS: 93306

== ENCOUNTER → 2023-01-19 10:44 | Outpatient (CLI) | payer MEDICARE, SELFPAY ==
--- NOTE | 2023-01-19 | US_ITS ---
FINAL REPORT CLINICAL HISTORY: HTN, HLD, Leg pain at rest, Claudication FINDINGS: ANKLE-BRACHIAL PRESSURE INDICES Pressure indices are as follows: RIGHT LOWER EXTREMITY: Ankle-brachial pressure index: 1.12 Comments: Normal LEFT LOWER EXTREMITY: Ankle-brachial pressure index: 1.1 Comments: Normal IMPRESSION: No evidence of significant obstructive peripheral vascular disease of the lower extremities Reviewed, Interpreted and Dictated by Eligio Nayak III, MD Transcribed by Caroline Oliver Authenticated and [facility]
== END ==
PROVIDERS: PCP Emergency Medicine; Visit Provider Physician Assistant
DX: I70.213 Atherosclerosis of native arteries of extremities with intermittent claudication, bilateral legs (principal); I10 Essential (primary) hypertension; E78.5 Hyperlipidemia, unspecified
CPT/HCPCS: 93923

== ENCOUNTER 2023-01-31 08:55 | Outpatient (RCR) | payer MEDICARE, SELFPAY ==
--- NOTE | 2023-01-31 10:04 | HMH.PTOPEV ---
PT Outpatient Evaluation Rehab PT Outpatient Evaluation Start: 01/31/23 09:43 Freq: Status: Active Protocol: Document 01/31/23 09:43 SHANIKA (Rec: 01/31/23 10:04 SHANIKA [id number]) E-signed By Parish Ventura, PT Outpatient Therapy Subjective History Subjective History Patient is a 67 year old male presenting to outpatient PT with reports of chronic B foot /ankle pain starting approx 3 years ago. Symptoms of insidious onset. Most recent imaging indicates no acute process. Symptoms worse in the am, R>L. Patient has received injections bilaterally that have provided some significant relief. Comorbidities include hx of LBP and HTN. Patient to have heart cath procedure soon. New diagnosis of cancer in past 12 No months? Chief Complaint Pain,Stiff Symptom Type Ache,Burning Symptoms Relieved By Rest/Positioning,Prescription Meds Symptoms Aggravated By Standing,Physical Activity, Walking Prior Functional Limitations None Current Functional Limitations Housework,Standing,Walking, Balance Symptom Description Constant but Variable Level of pain today (0-10) 5 Pain scale - at its best (0-10) 2 Pain scale - at its worst (0-10) 9 Ankle/Foot Eval Gait Observation General Gait Pattern Observation Antalgic Gait,Decrease Weight Bear (R) Assistive Device Ambulation Assistive Device None Palpation Tenderness bilateral Ankle/Foot Palpation Findings Tenderness Ankle/Foot Palpation Overall Comment B calcaneal tubercle, distal achilles insertion 3/4 ROM left Ankle/Foot Dorsiflexion w/Knee Extended 6 Active Range Motion (degrees) Ankle/Foot Plantar Flexion Active Range 40 of Motion (degrees) Ankle/Foot Eversion Active Range of 19 Motion (degrees) Ankle/Foot Inversion Active Range of 18 Motion (degrees) Ankle/Foot ROM Limitations Soft Tissue Tightness Great Toe ROM Reason Not Measured Within Functional Limits right Ankle/Foot Dorsiflexion w/Knee Extended 2 Active Range Motion (degrees) Ankle/Foot Plantar Flexion Active Range 42 of Motion (degrees) Ankle/Foot Eversion Active Range of 17 Motion (degrees) Ankle/Foot Inversion Active Range
== END 2023-01-31 08:59 | disposition home or self-care (01) ==
LOC: PT 08:55
PROVIDERS: PCP Emergency Medicine; Visit Provider Podiatrist
DX: M79.671 Pain in right foot (principal); M79.672 Pain in left foot; M72.2 Plantar fascial fibromatosis
CPT/HCPCS: 97163

== ENCOUNTER 2023-02-03 08:39 | Day surgery (SDC) | payer MEDICARE, SELFPAY ==
[2023-02-03] VITALS (14 sets, daily range): BP systolic 105–167; BP diastolic 57–94; PULSE 50–72; RESP 14–19; TEMP 37; O2SAT 93–98; BMI 28.9
--- NOTE | 2023-02-03 07:08 | IR_ITS ---
APPROVED REPORT Patient Location: Outpatient Technical Applications Scientist: EVGENY Cloud RT (R) PROCEDURES Left heart catheterization Left ventriculogram Selective coronary angiogram INDICATION Angina pectoris, Abnormal stress test, Abnormal CCTA Informed consent was obtained prior to the procedure. COMPLICATIONS NONE Estimated Blood Loss: LESS THAN 10 ML TECHNIQUE One percent lidocaine used to anesthetize the right anterior aspect of the wrist. The right radial artery was accessed via the Seldinger technique. A 6 Albanian sheath was placed in the right radial artery. 2.5 mg of Verapamil, 800 mcg of nitroglycerin, 1mg Lidocaine and 5000 U Heparin were given through the arterial sheath. The papa catheter was also used to perform left heart catheterization, left ventriculogram and selective coronary angiogram. At the end of the procedure the sheath was removed good hemostasis was achieved using Traclet band, patient was transferred to the postop holding area in stable condition. ANGIOGRAPHIC RESULTS The left main artery Normal The left anterior descending artery Has proximal 20% stenoses with mid vessel 10% stenoses The circumflex artery Large dominant with mild 10% luminal irregularities The right coronary artery Vestigial normal The PRUITT ventriculogram reveals Normal 65% The left ventricular end-diastolic pressure 10 mmHg IMPRESSION Mild nonflow limiting coronary artery disease Normal ejection fraction Normal left ventricular end-diastolic pressure PLAN 1. Risk factor modification 2. Hydration noncardiac chest pain Electronically signed by : Herminio Baez MD 02/03/2023 11:34:51
[2023-02-03 09:19] LABS: Basophils # 0.1 K/mm3 (0-0.2); Basophils % 0.8 % (0.1-2.0); Eosinophils # 0.3 K/mm3 (0.0-0.4); Eosinophils % 2.8 % (0.1-12.0); Hematocrit 47.3 % (42.0-52.0); Hemoglobin 16.5 g/dL (14.1-18.0); Lymphocytes # 2.8 K/mm3 (0.7-4.5); Lymphocytes % 28.1 % (10-50); Mean Corpuscular HGB Conc 34.9 g/dL (31.8-35.4); Mean Corpuscular Hemoglobin 34.8 pg (27.0-31.2); Mean Corpuscular Volume 99.7 fl (80-94); Mean Platelet Volume 8.5 fl (7.4-10.4); Monocytes # 0.7 K/mm3 (0.1-1.0); Monocytes % 7.4 % (1.7-9.3); Neutrophils # 6.1 K/mm3 (1.8-7.8); Neutrophils % 60.8 % (37.0-80.0); Platelet Count 185 K/mm3 (142-424); Red Blood Count 4.74 M/mm3 (4.60-6.20)
[2023-02-03 09:22] LABS: Chloride 102 mmol/L (98-107); Potassium 3.8 mmoL/L (3.5-5.1); Sodium 141 mmol/L (136-145)
[2023-02-03 09:25] LABS: Anion Gap 12.8 mEq/L (5-15); Blood Urea Nitrogen 15 mg/dl (9-20); Calcium 8.8 mg/dl (8.4-10.2); Carbon Dioxide 30 mmol/L (22.0-30.0); Creatinine Clearance Estimated 81 mL/min (50-200); Estimated Glomerular Filt Rate 67 ml/min (>60); GFR (African American) 81 ML/MIN (>60); Glucose 98 mg/dl (74-100)
== END 2023-02-03 14:33 | disposition home or self-care (01) ==
PROVIDERS: PCP Emergency Medicine; Visit Provider Internal Medicine
DX: I25.118 Atherosclerotic heart disease of native coronary artery with other forms of angina pectoris; I70.213 Atherosclerosis of native arteries of extremities with intermittent claudication, bilateral legs; J44.9 Chronic obstructive pulmonary disease, unspecified; R06.00 Dyspnea, unspecified; R94.30 Abnormal result of cardiovascular function study, unspecified; Z87.891 Personal history of nicotine dependence; Z79.899 Other long term (current) drug therapy
CPT/HCPCS: 80048; 85025; 93458; 99152; C1725; C1769; J1644; Q9967

== ENCOUNTER → 2023-02-10 14:43 | Outpatient (CLI) | payer MEDICARE, SELFPAY ==
[2023-02-10 16:13] LABS: Amphetamine/Metha Screen,Urine Negative ng/ml (<1000); Barbiturates Screen,Urine Negative ng/ml (<200)
[2023-02-10 16:14] LABS: Benzodiazepines Screen,Urine Negative ng/ml (<200); Cannabinoid Screen,Urine Negative ng/ml (<50)
[2023-02-10 16:16] LABS: Cocaine Screen,Urine Negative ng/ml (<300); Methadone Screen,Urine Negative ng/ml (<300)
[2023-02-10 16:17] LABS: Opiate Screen,Urine Negative ng/ml (<300)
[2023-02-10 16:19] LABS: Phencyclidine Screen,Urine Negative ng/ml (<25)
== END ==
PROVIDERS: PCP Emergency Medicine; Visit Provider Emergency Medicine
DX: M51.36 Other intervertebral disc degeneration, lumbar region (principal)
CPT/HCPCS: 80305

== ENCOUNTER 2023-04-10 15:36 | Outpatient (CLI) | payer MEDICARE, SELFPAY ==
[2023-04-10 12:55] LABS: Coronavirus 19, PCR Not Detected (NotDetected); Influenza A, PCR Not Detected (NotDetected); Influenza B, PCR Not Detected (NotDetected)
[2023-04-10 14:49] LABS: Amphetamine/Metha Screen,Urine Negative ng/ml (<1000); Barbiturates Screen,Urine Negative ng/ml (<200); Benzodiazepines Screen,Urine Negative ng/ml (<200); Cannabinoid Screen,Urine Negative ng/ml (<50); Cocaine Screen,Urine Negative ng/ml (<300); Methadone Screen,Urine Negative ng/ml (<300); Opiate Screen,Urine Negative ng/ml (<300); Phencyclidine Screen,Urine Negative ng/ml (<25)
[2023-04-16 10:09] LABS: Opiates Negative (Cutoff=100); Oxycodone (GC/MS) 330 ng/mL (Cutoff=100); Oxymorphone (GC/MS) 245 ng/mL (Cutoff=100)
== END 2023-04-10 23:59 ==
LOC: LAB.DROPOF 15:36
PROVIDERS: PCP Family Medicine; Visit Provider Family Medicine
DX: Z20.822 Contact with and (suspected) exposure to COVID-19 (principal); Z79.899 Other long term (current) drug therapy
CPT/HCPCS: 80307; 80361; 80365; 87636; G0480

== ENCOUNTER 2023-11-06 10:55 | Outpatient (CLI) | payer MEDICARE, SELFPAY ==
[2023-11-06 18:34] LABS: Basophils # 0.1 K/mm3 (0-0.2); Basophils % 0.9 % (0.1-2.0); Eosinophils # 0.2 K/mm3 (0.0-0.4); Eosinophils % 2.6 % (0.1-12.0); Hematocrit 49.6 % (42.0-52.0); Hemoglobin 15.9 g/dL (14.1-18.0); Lymphocytes # 2.4 K/mm3 (0.7-4.5); Lymphocytes % 27.1 % (10-50); Mean Corpuscular Hemoglobin 32.4 pg (27.0-31.2); Mean Corpuscular Volume 101.2 fl (80-94); Mean Platelet Volume 11.4 fl (7.4-10.4); Monocytes # 0.5 K/mm3 (0.1-1.0); Monocytes % 5.6 % (1.7-9.3); Neutrophils # 5.7 K/mm3 (1.8-7.8); Neutrophils % 63.8 % (37.0-80.0); Platelet Count 238 K/mm3 (142-424); Red Cell Distribution Width 13.5 % (11.5-17.5); White Blood Count 8.9 K/mm3 (4.8-10.8)
[2023-11-06 18:45] LABS: Alanine Aminotransferase 34 U/L (12-78); Albumin Level 3.7 g/dl (3.5-5.0); Albumin/Globulin Ratio 1.2 (1.1-1.8); Alkaline Phosphatase 69 U/L (38-126); Anion Gap 11.1 mEq/L (5-15); Aspartate Amino Transferase 35 U/L (17-59); Bilirubin,Total 0.6 mg/dl (0.2-1.3); Blood Urea Nitrogen 15 mg/dl (9-20); Calcium 9.1 mg/dl (8.4-10.2); Carbon Dioxide 24 mmol/L (22.0-30.0); Chloride 108 mmol/L (98-107); Chol/HDL Ratio 3.4 (1-3.5); Cholesterol 142 mg/dl (140-200); Estimated Glomerular Filt Rate 96 ml/min (>60); GFR (African American) 116 ML/MIN (>60); Globulin 3.2 g/dL (1.3-3.2); Glucose 99 mg/dl (74-100); HDL Cholesterol 42 mg/dl (40-60); Potassium 4.1 mmoL/L (3.5-5.1); Sodium 139 mmol/L (136-145); Total Protein,Serum 6.9 g/dl (6.3-8.2); Triglycerides 119 mg/dl (30-150); VLDL Cholesterol 24 mg/dL (0-40)
[2023-11-06 18:56] LABS: Direct LDL Cholesterol 73.43 mg/dL (100-129)
[2023-11-06 19:14] LABS: Prostate Specific Ag Screen 0.3 ng/ml (0.0-4.0); Thyroid Stimulating Hormone 2.62 uIU/mL (0.465-4.68)
[2023-11-06 19:33] LABS: Vitamin B12 900 pg/mL (239-931)
[2023-11-06 19:38] LABS: Hemoglobin A1C 5.5 % (4.0-6.0)
[2023-11-06 21:43] LABS: 25-OH Vitamin D, Total 56.4 ng/mL (30-100)
[2023-11-09 14:47] LABS: Lyme B. burgdorferi PCR Blood Negative (Negative)
== END 2023-11-06 23:59 | disposition home or self-care (01) ==
LOC: LAB.DROPOF 11-07 10:56
PROVIDERS: PCP Family Medicine; Visit Provider Family Medicine
DX: E78.5 Hyperlipidemia, unspecified (principal); Z12.5 Encounter for screening for malignant neoplasm of prostate; E11.9 Type 2 diabetes mellitus without complications; E55.9 Vitamin D deficiency, unspecified; W57.XXXA Bitten or stung by nonvenomous insect and other nonvenomous arthropods, initial encounter; R53.83 Other fatigue; E66.3 Overweight
CPT/HCPCS: 80050; 80053; 80061; 82306; 82607; 83036; 84443; 85025; 87476; G0103

== ENCOUNTER 2023-11-13 09:44 | Outpatient (CLI) | payer MEDICARE, SELFPAY ==
--- NOTE | 2023-11-13 09:47 | XR_ITS ---
FINAL REPORT CLINICAL HISTORY: right shoulder pain X1 MONTH COMPARISON: None FINDINGS: RIGHT SHOULDER 3 views demonstrate no acute fracture or dislocation. There is mild acromioclavicular and glenohumeral joint degenerative change. The visualized bony structures are well aligned. No soft tissue abnormality is seen. IMPRESSION: Mild degenerative changes without acute process. Reviewed, Interpreted and Dictated by Eligio Nayak III, MD Transcribed by Daphne Jaime Authenticated and . [facility]
== END 2023-11-13 23:59 | disposition home or self-care (01) ==
LOC: RAD 09:45
PROVIDERS: PCP Family Medicine; Visit Provider Family Medicine
DX: M25.511 Pain in right shoulder (principal)
CPT/HCPCS: 73030

== ENCOUNTER 2024-02-15 10:51 | Day surgery (SDC) | payer MEDICARE, SELFPAY ==
[2024-02-13 17:18] VITALS: BMI 34.6
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
[2024-02-15] MEDS: LACTATED RINGERS 1000ML 1,000 ML 25 ML IV (11:50)
[2024-02-15 11:52] VITALS: BP 160/84; PULSE 61; RESP 18; TEMP 36.6; O2SAT 96
[2024-02-15 13:03] VITALS: O2SAT 96
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
--- NOTE | 2024-02-15 13:12 | HMH.PROCNOTE ---
[facility] Procedure Note Date: 02/15/24 Time: 13:23 Procedure Note:: Colonoscopy Procedure Report: Colonoscopy with cold snare polypectomy and hemorrhoid band ligation Endoscopist: Lyle Monaco II, MD Referring physician: VANESSA Mg Date of Procedure: February 15, 2024 Equipment: Olympus 190 variable stiffness pediatric colonoscope Sedation: MAC sedation Indication: Mr. Arroyo is a 68-year-old gentleman who is here for follow-up screening colonoscopy since it has been 14 years to the patient's knowledge. He reports no abdominal pain, weight loss, change in his bowel habits. He reports no family history of colon cancer. He does get some intermittent hemorrhoidal bleeding. Procedure: Prior to the procedure, a history and physical exam was performed, and patient's medications and allergies were reviewed. The risks, benefits and alternatives of the sedation and procedure were discussed with the patient. All questions were answered and informed consent was obtained. The patient was brought to the procedure room. Patient identification and proposed procedure were verified by the physician and the nurse. The patient was placed in a left lateral decubitus position and the scope was passed under direct vision. Throughout the procedure, the patient's blood pressure, pulse, and oxygen saturations were monitored continuously. The colonoscopy was accomplished without difficulty. The patient tolerated the procedure well. Findings: On digital rectal examination there was normal rectal tone. There were no external hemorrhoids. There was some internal hemorrhoid prolapse. The colonoscope was introduced through the anal canal to the rectum and advanced to the cecum. The ileocecal valve and appendiceal orifice were identified. The scope was advanced a short distance into the ileum which appeared grossly normal. The scope was then withdrawn into the colon. There was a single 5 mm polyp in the ascending colon removed via cold snare polypectomy. The remaining cecum, ascending and transverse colon and mucosa were grossly normal. There were scattered diverticuli throughout the descending and sigmoid colon (LEFT colon). The rectum itself was normal. Upon retroflexion within the rectum there were grade 2-3 internal hemorrhoids. 3 columns of hemorrhoids were banded using 3 bands with excellent ligation effect. The preparation was excellent throughout with [place] Preparation Score of 9. The cecal time was 14 minutes. Impression: 1. Diminutive 5 mm ascending colon polyp 2. Left-sided diverticulosis 3. Grade 2-3 internal hemorrhoids status post band ligation x 3 Plan: I will follow-up the polyp histology and recommend repeat surveillance colonoscopy again in 7 years if the polyp is adenomatous. I would encourage psyllium bulking fiber supplementation on a long-term daily maintenance basis.
[2024-02-15 13:31] VITALS: BP 108/66; PULSE 57; RESP 16; TEMP 36.1; O2SAT 94
[2024-02-15 13:41] VITALS: BP 122/71; PULSE 55; RESP 16; O2SAT 94
[2024-02-15 13:51] VITALS: BP 140/66; PULSE 60; RESP 18; O2SAT 95
[2024-02-15 14:01] VITALS: BP 138/91; PULSE 57; RESP 18; O2SAT 95
== END 2024-02-15 14:10 | disposition home or self-care (01) ==
PROVIDERS: Visit Provider Internal Medicine Gastroenterology
PROC: (CPT 45385; principal; 2024-02-15 12:30)
DX: Z12.11 Encounter for screening for malignant neoplasm of colon (principal); K63.5 Polyp of colon; K57.30 Diverticulosis of large intestine without perforation or abscess without bleeding; K64.8 Other hemorrhoids
CPT/HCPCS: 45385; 45398; 88305; C1889; J7120

== ENCOUNTER 2024-05-01 10:33 | Outpatient (CLI) | payer MEDICARE, SELFPAY ==
--- NOTE | 2024-05-01 10:40 | XR_ITS ---
FINAL REPORT TECHNIQUE: Chest PA & Lateral CLINICAL HISTORY: Shortness of breath on exertion, left-sided pain FINDINGS: 2 views of the chest were performed. The heart size is normal. The mediastinum is within normal limits. There are mild chronic changes in both lungs. There is no acute cardiopulmonary process. There are no pleural effusions. There is no pneumothorax. The bony thorax appears intact. IMPRESSION: No acute cardiopulmonary process. Reviewed, Interpreted and Dictated by Scott Diane MD Transcribed by Frances Boswell Authenticated and [facility]
== END 2024-05-01 23:59 | disposition home or self-care (01) ==
LOC: RAD 10:33
PROVIDERS: PCP Family Medicine; Visit Provider Family Medicine
DX: R06.09 Other forms of dyspnea (principal)
CPT/HCPCS: 71046

== ENCOUNTER 2024-05-08 15:55 | Outpatient (CLI) | payer MEDICARE, SELFPAY ==
--- NOTE | 2024-05-08 15:55 | MR_ITS ---
PROCEDURE INFORMATION: Exam: MR Cervical Spine Without Contrast Exam date and time: 05/08/2024 4:08 PM Age: 68 years old Clinical indication: Neck pain; Additional info: Cervical pain TECHNIQUE: Imaging protocol: Magnetic resonance imaging of the cervical spine without contrast. COMPARISON: 1. CT CHEST WO CON 09/24/2021 6:51 AM 2. MR HEAD/BRAIN WO CON 09/01/2021 7:[address] LUNG SCREENING 03/17/2021 3:26 PM FINDINGS: Bones/joints: There is straightening of the normal spinal curvature. Spinal cord: Normal signal. No cord compression. C2-C3: No significant disc bulge or herniation. No severe spinal canal stenosis. No significant neural foraminal narrowing. C3-C4: There is loss of intervertebral disc space with a mild diffuse disc bulge and mild bilateral facet arthropathy. Findings cause mild canal and bilateral neural foraminal narrowing. C4-C5: There is loss of intervertebral disc space with a mild diffuse disc bulge and mild bilateral facet arthropathy. Findings cause mild canal and bilateral neural foraminal narrowing. C5-C6: There is loss of intervertebral disc space with a mild diffuse disc bulge and mild bilateral facet arthropathy. Findings cause mild canal and bilateral neural foraminal narrowing. C6-C7: No significant disc bulge or herniation. No severe spinal canal stenosis. No significant neural foraminal narrowing. C7-T1: No significant disc bulge or herniation. No severe spinal canal stenosis. No significant neural foraminal narrowing. Soft tissues: Unremarkable. Vasculature: Expected flow voids in the vertebral arteries. IMPRESSION: Minimal spondylosis without significant canal or neural foraminal narrowing identified.
== END 2024-05-08 23:59 | disposition home or self-care (01) ==
LOC: RAD 15:55
PROVIDERS: Visit Provider Orthopaedic Surgery
DX: M54.12 Radiculopathy, cervical region (principal)
CPT/HCPCS: 72141

== ENCOUNTER 2024-05-16 11:08 | Outpatient (POV) | payer MEDICARE, SELFPAY ==
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
[2024-05-16 13:54] VITALS: BP 140/89; PULSE 71; RESP 18; O2SAT 96; BMI 34.4
== END 2024-05-16 23:59 | disposition home or self-care (01) ==
LOC: SC.PAIN 11:10
PROVIDERS: PCP Family Medicine; Visit Provider Nurse Practitioner Family
DX: M75.51 Bursitis of right shoulder (principal); M75.01 Adhesive capsulitis of right shoulder; M25.511 Pain in right shoulder; M54.12 Radiculopathy, cervical region; Z73.89 Other problems related to life management difficulty
CPT/HCPCS: 99202; G0463

== ENCOUNTER 2024-06-03 10:22 | Observation (INO) | payer MEDICARE, SELFPAY ==
[2024-06-03] VITALS (12 sets, daily range): BP systolic 105–159; BP diastolic 61–112; PULSE 60–78; RESP 15–23; TEMP 36.8–36.9; O2SAT 88–98; BMI 32.3; BMI 32.6
--- NOTE | 2024-06-03 11:09 | ECG_ITS ---
APPROVED REPORT Exam: Resting ECG HR:72 bpm ECG Measurements Heart Rate 72 AXES TN 176 P 58 QRSd 103 QRS -26 QT 391 T 55 QTc 415 Conclusion SINUS RHYTHM BORDERLINE LEFT AXIS DEVIATION [QRS AXIS < -20] BORDERLINE ECG UNCONFIRMED REPORT Electronically signed by : Guanaco Zhou, 06/03/2024 15:34:31
[2024-06-03 11:11] LABS: Microscopic, Urine URINE MICROSCOPIC (MICROSCOPIC)
[2024-06-03 11:17] LABS: Appearance,Urine SL CLOUDY (Clear); Blood, Urine Negative (Negative); Color,Urine YELLOW (Yellow); Glucose,Urine (UA) Negative (Negative); Ketones,Urine Negative (Negative); Leukocyte Esterase,Urine TRACE (Negative); Nitrate,Urine Negative (Negative); Protein,Urine TRACE (Negative); Specific Gravity, Urine >= 1.030 (1.005-1.030); Urobilinogen,Urine 0.2 EU/dl (0.2)
[2024-06-03 11:18] LABS: Bilirubin,Urine 1+ (Negative)
[2024-06-03 11:19] LABS: Bacteria,Urine Trace /lpf; Mucus,Urine Trace /lpf; WBC,Urine Occasional #/hpf (0-3)
[2024-06-03 11:26] LABS: Basophils # 0.1 K/mm3 (0-0.2); Basophils % 0.5 % (0.1-2.0); Eosinophils # 0.1 K/mm3 (0.0-0.4); Eosinophils % 0.3 % (0.1-12.0); Hematocrit 50.1 % (42.0-52.0); Hemoglobin 16.8 g/dL (14.1-18.0); Lymphocytes # 2.6 K/mm3 (0.7-4.5); Lymphocytes % 11.8 % (10-50); Mean Corpuscular HGB Conc 33.5 g/dL (31.8-35.4); Mean Corpuscular Hemoglobin 30.5 pg (27.0-31.2); Mean Corpuscular Volume 91.1 fl (80-94); Mean Platelet Volume 10.3 fl (7.4-10.4); Monocytes # 1.6 K/mm3 (0.1-1.0); Monocytes % 7.2 % (1.7-9.3); Neutrophils # 17.7 K/mm3 (1.8-7.8); Neutrophils % 79.8 % (37.0-80.0); Platelet Count 312 K/mm3 (142-424); Red Cell Distribution Width 13.3 % (11.5-17.5); White Blood Count 22.3 K/mm3 (4.8-10.8)
[2024-06-03 11:32] LABS: Albumin Level 4.6 g/dl (3.5-5.0); Chloride 100 mmol/L (98-107); Potassium 3.8 mmoL/L (3.5-5.1); Sodium 138 mmol/L (136-145)
[2024-06-03 11:34] LABS: Blood Urea Nitrogen 26 mg/dl (9-20); Creatinine Clearance Estimated 79 mL/min (50-200); Estimated Glomerular Filt Rate 66 ml/min (>60); GFR (African American) 80 ML/MIN (>60); Lactic Acid 1.3 mmol/L (0.7-2.1); Lipase 51 U/L (23-300)
[2024-06-03 11:35] LABS: Alanine Aminotransferase 37 U/L (12-78); Albumin/Globulin Ratio 1.1 (1.1-1.8); Alkaline Phosphatase 82 U/L (38-126); Anion Gap 13.8 mEq/L (5-15); Aspartate Amino Transferase 37 U/L (17-59); Bilirubin,Total 0.9 mg/dl (0.2-1.3); Calcium 9.4 mg/dl (8.4-10.2); Carbon Dioxide 28 mmol/L (22.0-30.0); Globulin 4.1 g/dL (1.3-3.2); Glucose 115 mg/dl (74-100); Total Protein,Serum 8.7 g/dl (6.3-8.2)
[2024-06-03 11:37] LABS: MANUAL DIFFERENTIAL MANUAL DIFFERENTIAL (MANUAL DIFF)
[2024-06-03 11:48] LABS: Troponin I < 0.01 ng/ml (0.00-0.034)
[2024-06-03 12:25] LABS: Lymphocytes % 13 % (10-50); Monocytes % 8 % (2-9); Neutrophils % 79 % (42-76); Platelet Estimate Normal; RBC Morphology Normal; Total Cells Counted 100
--- NOTE | 2024-06-03 12:33 | CT_ITS ---
FINAL REPORT TECHNIQUE: After the administration of intravenous contrast, axial images were obtained through the abdomen and pelvis by computed tomography. This study was performed with technique to keep radiation doses as low as reasonably achievable, (ALARA). Individualized dose reduction techniques using automated exposure control or adjustment of the MA and/or KV according to the patient's size were employed. CLINICAL HISTORY: diffuse abd pain, N/V FINDINGS: Abdomen: The lung bases are clear. The liver is fatty infiltrated. The spleen is unremarkable. The adrenals are normal. The pancreas is unremarkable. The kidneys enhance appropriately. The aorta is normal in caliber. There is no free fluid or adenopathy. There is fluid-filled, mildly dilated small bowel which could represent mild, early partial obstruction or enteritis. Colon and distal small bowel are decompressed. There is questionable thickening of the mid jejunum seen on images 85 through 87. Pelvis: The appendix is not identified. There are mild inflammatory changes surrounding the mid sigmoid colon consistent with diverticulitis. The urinary bladder and prostate are unremarkable. There is no free fluid or adenopathy. IMPRESSION: Findings consistent with mild diverticulitis. No evidence of abscess. Fluid-filled, dilated small bowel suspicious for enteritis or mild, early partial obstruction. CT follow-up may be helpful. Reviewed, Interpreted and Dictated by Carlos Manuel Sal MD Transcribed by Caroline Oliver Authenticated and [facility]
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
[2024-06-03] MEDS: MORPHINE 4MG/ML SYRINGE 4 MG IV (12:39)
[2024-06-03] MEDS: LACTATED RINGERS 1000ML 1,000 ML 999 ML IV (12:39)
[2024-06-03] MEDS: ONDANSETRON 4MG/2ML VIAL 4 MG IV ×2 (12:39→19:54)
[2024-06-03] MEDS: IOPAMIDOL-370 (76%);100ML BOTTLE 75 ML IV (12:53)
[2024-06-03] MEDS: SODIUM CHLORIDE 0.9% 10ML SYR (RAD ONLY) 10 ML IV (12:54)
--- NOTE | 2024-06-03 13:45 | PC.NURSE ---
DR MOSLEY AT BEDSIDE TO UPDATE PT AND FAMILY
--- NOTE | 2024-06-03 13:46 | PC.NURSE ---
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 to have them call the ER per Dr Zhou
--- NOTE | 2024-06-03 13:49 | PC.NURSE ---
[facility] called back and advised they left a vmail to call the ER.... Then called the offce and got there ail
[2024-06-03] MEDS: CEFEPIME HCL 2 GM in 0.9 % SODIUM CHLORIDE 100 ML IV (14:05)
[2024-06-03 14:15] LABS: Troponin I < 0.01 ng/ml (0.00-0.034)
[2024-06-03] MEDS: PIPERCILLIN/TAZO 3.375 GM in 0.9 % SODIUM CHLORIDE 50 ML IV (14:34)
--- NOTE | 2024-06-03 14:46 | PC.NURSE ---
DR MOSLEY SPEAKING TO DR HIGHTOWER
[2024-06-03] MEDS: METRONIDAZ/SOD CHL 500 MG/100 ML PIGGYBACK 100 MG IV ×2 (14:56→19:55)
--- NOTE | 2024-06-03 15:07 | PC.NURSE ---
CORRESPONDENCE REVIEW CLERK NOTIFIED OF ADMISSION
--- NOTE | 2024-06-03 15:16 | HMH.PHAINT1 ---
Pharmacy Intervention Comments: MEDICATION RECONCILIATION COMPLETED ON PATIENT USING EXTERNAL FILL HISTORY FROM PHARMACY AND LIST FROM PCP OFFICE. -HAN MASON, FAINAD
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
[2024-06-03] MEDS: ACETAMINOPHEN 325MG TAB 650 MG PO (19:54)
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
[2024-06-03 20:22] LABS: Troponin I < 0.01 ng/ml (0.00-0.034)
[2024-06-03] MEDS: 0.9 % SODIUM CHLORIDE 1000ML 1,000 ML 100 ML IV (20:22)
[2024-06-04] MEDS: CEFEPIME HCL 1 GM in 0.9 % SODIUM CHLORIDE 50 ML IV (03:02)
[2024-06-04] MEDS: METRONIDAZ/SOD CHL 500 MG/100 ML PIGGYBACK 100 MG IV ×3 (03:04→20:05)
[2024-06-04 04:00] VITALS: BP 132/87; PULSE 59; RESP 16; TEMP 36.3; O2SAT 97; BMI 32.7
--- NOTE | 2024-06-04 05:21 | PC.NURSE ---
Pt was able to pass gas, but no bowel movement yet. V/S, ox4. No acute events to report, plan of care ongoing.
[2024-06-04] MEDS: 0.9 % SODIUM CHLORIDE 1000ML 1,000 ML 100 ML IV ×2 (05:41→11:34)
[2024-06-04 06:13] LABS: Basophils # 0.1 K/mm3 (0-0.2); Basophils % 0.7 % (0.1-2.0); Eosinophils # 0.3 K/mm3 (0.0-0.4); Eosinophils % 1.9 % (0.1-12.0); Hematocrit 45.1 % (42.0-52.0); Lymphocytes % 13.6 % (10-50); Mean Corpuscular HGB Conc 33.3 g/dL (31.8-35.4); Mean Corpuscular Hemoglobin 30.3 pg (27.0-31.2); Mean Corpuscular Volume 91.1 fl (80-94); Mean Platelet Volume 10.5 fl (7.4-10.4); Monocytes # 1.3 K/mm3 (0.1-1.0); Monocytes % 8.6 % (1.7-9.3); Neutrophils # 11.2 K/mm3 (1.8-7.8); Neutrophils % 74.7 % (37.0-80.0); Platelet Count 253 K/mm3 (142-424); Red Blood Count 4.95 M/mm3 (4.60-6.20); Red Cell Distribution Width 13.3 % (11.5-17.5)
[2024-06-04 06:23] LABS: MANUAL DIFFERENTIAL MANUAL DIFFERENTIAL (MANUAL DIFF)
[2024-06-04 06:32] LABS: Hemoglobin 14.9 g/dL (14.1-18.0)
[2024-06-04 06:39] LABS: Alanine Aminotransferase 36 U/L (12-78); Albumin Level 3.7 g/dl (3.5-5.0); Albumin/Globulin Ratio 1.2 (1.1-1.8); Alkaline Phosphatase 70 U/L (38-126); Aspartate Amino Transferase 41 U/L (17-59); Bilirubin,Total 0.6 mg/dl (0.2-1.3); Blood Urea Nitrogen 26 mg/dl (9-20); Calcium 8.9 mg/dl (8.4-10.2); Carbon Dioxide 25 mmol/L (22.0-30.0); Chloride 106 mmol/L (98-107); Creatinine Clearance Estimated 80 mL/min (50-200); Estimated Glomerular Filt Rate 66 ml/min (>60); GFR (African American) 80 ML/MIN (>60); Globulin 3.1 g/dL (1.3-3.2); Glucose 99 mg/dl (74-100); Magnesium 1.8 mg/dl (1.6-2.3); Sodium 137 mmol/L (136-145); Total Protein,Serum 6.8 g/dl (6.3-8.2)
[2024-06-04 07:54] VITALS: BP 125/82; PULSE 60; RESP 17; TEMP 37.3; O2SAT 96
--- NOTE | 2024-06-04 08:04 | EXP.SURG.PN ---
Subjective Narrative: Patient states that he feels about the same . Taking ice chips. Bowels have been moving. Describes it as diarrhea. Exam Data for Last 24 hours Vital signs and Labs for Last 24 Hours: Temp Pulse Resp BP Pulse Ox O2 Del Method O2 Flow Rate 99.1 F 60 17 125/82 96 Room Air 1 06/04/24 07:54 06/04/24 07:54 06/04/24 07:54 06/04/24 07:54 06/04/24 07:54 06/04/24 07:54 06/04/24 06:03 Laboratory Results - last 24 hr 06/03/24 11:07: Urine Color Yellow, Urine Appearance Sl cloudy, Urine pH 6.0, Ur Specific [place] >= 1.030, Urine Protein Trace, Urine Glucose (UA) Negative, Urine Ketones Negative, Urine Blood Negative, Urine Nitrate Negative, Urine Bilirubin 1+ A, Urine Urobilinogen 0.2, Ur Leukocyte Esterase Trace, Urine RBC None, Urine WBC Occasional, Ur Squamous Epith Cells 10-20, Other Sediment Comment, Urine Bacteria Trace, Urine Mucus Trace 06/03/24 11:10: WBC 22.3 H*, RBC 5.50, Hgb 16.8, Hct 50.1, MCV 91.1, MCH 30.5, MCHC 33.5, RDW 13.3, Plt Count 312, MPV 10.3, Neut % (Auto) 79.8, Lymph % (Auto) 11.8, [place] % (Auto) 7.2, Eos % (Auto) 0.3, Baso % (Auto) 0.5, Neut # (Auto) 17.7 H, Lymph # (Auto) 2.6, [place] # (Auto) 1.6 H, Eos # (Auto) 0.1, Baso # (Auto) 0.1, Total Counted 100, Neutrophils % (Manual) 79 H, Lymphocytes % (Manual) 13, Monocytes % (Manual) 8, Platelet Estimate Normal, RBC Morphology Normal, Sodium 138, Potassium 3.8, Chloride 100, Carbon Dioxide 28, Anion Gap 13.8, BUN 26 H, Creatinine 1.10, Estimated Creat Clear 79, Estimated GFR 66, Est GFR ( Amer) 80, Glucose 115 H, Lactate 1.3, Calcium 9.4, Total Bilirubin 0.9, AST 37, ALT 37, Alkaline Phosphatase 82, Troponin I < 0.01, Total Protein 8.7 H D, Albumin 4.6, Globulin 4.1 H, Albumin/Globulin Ratio 1.1, Lipase 51 06/03/24 13:40: Troponin I < 0.01 06/03/24 17:17: Troponin I < 0.01 06/04/24 06:05: WBC 15.0 H D, RBC 4.95, Hgb 14.9 D, Hct 45.1, MCV 91.1, MCH 30.3, MCHC 33.3, RDW 13.3, Plt Count 253, MPV 10.5 H, Neut % (Auto) 74.7, Lymph % (Auto) 13.6, [place] % (Auto) 8.6, Eos % (Auto) 1.9, Baso % (Auto) 0.7, Neut # (Auto) 11.2 H, Lymph # (Auto) 2.0, [place] # (Auto) 1.3 H, Eos # (Auto) 0.3, Baso # (Auto) 0.1, Sodium 137, Potassium 4.0, Chloride 106, Carbon Dioxide 25, Anion Gap 10.0, BUN 26 H, Creatinine 1.10, Estimated Creat Clear 80, Estimated GFR 66, Est GFR ( Amer) 80, Glucose 99, Calcium 8.9, Magnesium 1.8, Total Bilirubin 0.6, AST 41, ALT 36, Alkaline Phosphatase 70, Total Protein 6.8, Albumin 3.7 D, Globulin 3.1, Albumin/Globulin Ratio 1.2 I & O for Last 24 hours: Intake & Output 06/01/24 06/02/24 06/03/24 06/04/24 11:59 11:59 11:59 11:59 Intake Total 616 / 616 Output Total 0 / 0 Balance 616 / 616 Weight 194 lb 196 lb 7.157 oz *Routine Abdominal Exam Comments: Slightly distended. Mild left lower quadrant tenderness. Progress Note: A&P Assessment and plan (1) Acute diverticulitis: Status: Acute Assessment and plan: White blood cell count improving. Patient given clear liquids this morning. No need for surgical intervention at this time. Advance diet cautiously. Stool diarrhea panel.
[2024-06-04] MEDS: GABAPENTIN 600MG TABLET 600 MG PO ×3 (08:53→22:54)
[2024-06-04] MEDS: ASPIRIN EC 81MG TABLET 81 MG PO (08:53)
[2024-06-04] MEDS: SERTRALINE 50MG TABLET 50 MG PO (08:54)
[2024-06-04] MEDS: PANTOPRAZOLE 40MG TABLET 40 MG PO ×2 (08:54→22:53)
[2024-06-04 08:59] LABS: Lymphocytes % 22 % (10-50); Monocytes % 6 % (2-9); Neutrophils % 72 % (42-76); Platelet Estimate Normal; RBC Morphology Normal; Total Cells Counted 100
[2024-06-04 08:59] LABS: Adenovirus F 40/41, stool Not Detected (NotDetected); Astrovirus Not Detected (NotDetected); Campylobacter Not Detected (NotDetected); Cryptosporidium Not Detected (NotDetected); Cyclospora Cayetanesis Not Detected (NotDetected); Entamoeba histolytica Not Detected (NotDetected); Enteroaggregative E coli Not Detected (NotDetected); Enteropathogenic E coli Not Detected (NotDetected); Enterotoxigenic E coli Not Detected (NotDetected); Giardia lamblia Not Detected (NotDetected); Norovirus Not Detected (NotDetected); Plesimonas Shigalloides, PCR Not Detected (NotDetected); Rotavirus A Not Detected (NotDetected); Salmonella, PCR Not Detected (NotDetected); Sapovirus Not Detected (NotDetected); Shiga-like toxin E coli Not Detected (NotDetected); Shigella Enterovasive E coli Not Detected (NotDetected); Vibrio Cholerae Not Detected (NotDetected); Vibrio, PCR Not Detected (NotDetected); Yersinia Entercolitica, PCR Not Detected (NotDetected)
[2024-06-04 13:44] LABS: Clostridium Difficile A/B, PCR Detected (NotDetected)
--- NOTE | 2024-06-04 14:15 | PC.NURSE ---
Call received from lab for positive c-diff result from stool studies. Patient placed in appropriate isolation and education provided regarding c-diff infection including soap and water and bleach
[2024-06-04] MEDS: CEFEPIME HCL 2 GM in 0.9 % SODIUM CHLORIDE 100 ML IV (14:42)
[2024-06-04] MEDS: ACETAMINOPHEN 325MG TAB 650 MG PO (14:45)
--- NOTE | 2024-06-04 15:15 | PC.NURSE ---
Dr. Dodge notified of patient's positive result for c-diff.
--- NOTE | 2024-06-04 15:52 | PC.NURSE ---
Patient alert and oriented. VSS. On room air. Up ad rafiq. Minimal oral intake of clear liquid diet. Contact enteric isolation for c-diff. Gabapentin for chronic back pain. Tylenol for MONET. Multiple liquid BM's. IV fluids and antibiotics administered per orders. Possible discharge home when able to tolerate oral intake and pain controlled.
[2024-06-04 16:00] VITALS: BP 133/69; PULSE 56; RESP 17; TEMP 37.2; O2SAT 94
[2024-06-04] MEDS: VANCOMYCIN HCL 50MG/ML 150ML KIT 125 MG PO ×2 (17:02→22:55)
[2024-06-04] MEDS: FLUTICASONE/SALMETEROL 250/50MCG DISKUS 1 PUFF IH (18:14)
--- NOTE | 2024-06-04 19:45 | P.PN_ITS ---
Subjective *Date: 06/04/24 *Time: 21:28 Interval history: Remain afebrile with stable on room air. Continues to have loose watery stools. Slight improvement in white count today. Tolerating liquids but feels are going right through him. No nausea or vomiting. Denies any chest pain or shortness of breath. Medical Exam Vital signs and Labs for Last 24 Hours: Vital Signs Temp Pulse Resp BP Pulse Ox O2 Del Method O2 Flow Rate 06/04/24 18:47 Room Air 06/04/24 17:00 Room Air 06/04/24 16:00 98.9 F 56 L 17 133/69 94 L Room Air 06/04/24 14:47 Room Air 06/04/24 12:51 Room Air 06/04/24 11:00 Room Air 06/04/24 08:55 Room Air 06/04/24 07:54 99.1 F 60 17 125/82 96 Room Air 06/04/24 07:45 Room Air 06/04/24 06:03 Nasal Cannula 1 06/04/24 04:56 Nasal Cannula 1 06/04/24 04:00 97.4 F L 59 L 16 132/87 97 Nasal Cannula 1 06/04/24 03:01 Nasal Cannula 2 06/04/24 02:17 Nasal Cannula 1 06/04/24 00:14 Nasal Cannula 1 06/03/24 22:58 Nasal Cannula 1 06/03/24 20:36 Nasal Cannula 1 06/03/24 20:00 98.4 F 63 16 153/61 H 96 Nasal Cannula 1 06/03/24 20:00 Nasal Cannula 1 Intake and Output 06/04/24 06/04/24 06/04/24 07:59 15:59 23:59 Intake Total 416 / 1616 600 / 1616 600 / 1616 Output Total 0 / 0 0 / 0 0 / 0 Balance 416 / 1616 600 / 1616 600 / 1616 Intake: Intake, Oral Amount 240 / 1440 600 / 1440 600 / 1440 Intake, Total IV Amount 176 / 176 0.9 % Sodium Chloride 1000ML 1, 176 / 176 000 ml @ 100 mls/hr IV .Q10H [facility] Rx#:[id number] Output: Output, Urine Amount 0 / 0 0 / 0 0 / 0 Other: Number of Unmeasured Voids 1 1 1 Number of Bowel Movements 1 1 1 Weight 89.107 kg Patient Weight 06/04/24 23:59 Weight 89.107 kg Laboratory Results - last 24 hr 06/03/24 17:17: Troponin I < 0.01 06/04/24 06:05: WBC 15.0 H D, RBC 4.95, Hgb 14.9 D, Hct 45.1, MCV 91.1, MCH 30.3, MCHC 33.3, RDW 13.3, Plt Count 253, MPV 10.5 H, Neut % (Auto) 74.7, Lymph % (Auto) 13.6, [place] % (Auto) 8.6, Eos % (Auto) 1.9, Baso % (Auto) 0.7, Neut # (Auto) 11.2 H, Lymph # (Auto) 2.0, [place] # (Auto) 1.3 H, Eos # (Auto) 0.3, Baso # (Auto) 0.1, Total Counted 100, Neutrophils % (Manual) 72, Lymphocytes % (Manual) 22, Monocytes % (Manual) 6, Platelet Estimate Normal, RBC Morphology Normal, Sodium 137, Potassium 4.0, Chloride 106, Carbon Dioxide 25, Anion Gap 10.0, BUN 26 H, Creatinine 1.10, Estimated Creat Clear 80, Estimated GFR 66, Est GFR ( Amer) 80, Glucose 99, Calcium 8.9, Magnesium 1.8, Total Bilirubin 0.6, AST 41, ALT 36, Alkaline Phosphatase 70, Total Protein 6.8, Albumin 3.7 D, G lobulin 3.1, Albumin/Globulin Ratio 1.2 06/04/24 08:46: Stl Aeromonas (PCR) Not detected, Stl C. cayetanensis PCR Not detected, Stool Rotavirus (PCR) Not detected, Stl Adenov F 40/41 PCR Not detected, Stool Astrovirus (PCR) Not detected, Stool Campylobacter PCR Not detected, Stl C.difficile Tox PCR Detected A, Stool Cryptosporidium PCR Not detected, Stl E.coli Shiga Tox PCR Not detected, Stool E coli O157 PCR Not detected, Stl Enterotoxigenic E PCR Not detected, Stool EPEC (PCR) Not detected, Stool EAEC (PCR) Not detected, Stl E. histolytica PCR Not detected, Stool Giardia Lamblia PCR Not detected, Stool Salmonella PCR Not detected, Stool Sapovirus (PCR) Not detected, Stl P. shigelloides PCR Not detected, Stl Shigella/EIEC PCR Not detected, St Y.enterocolitica PCR Not detected, Stool Vibrio (PCR) Not detected, Stl Vibrio cholerae PCR Not detected, Stl Norovirus GI/GII PCR Not detected I & O for Labs for Last 24 Hours: Intake & Output 06/01/24 06/02/24 06/03/24 06/04/24 23:59 23:59 23:59 23:59 Intake Total 200 / 200 1616 / 1616 Output Total 0 / 0 0 / 0 Balance 200 / 200 1616 / 1616 Weight 89.103 kg 89.107 kg Constitutional: Present no acute distress, obese and cooperative Head: Present atraumatic ENT: Present normal exam Respiratory: Present normal respiratory effort; Absent rhonchi, wheezes or crackles Cardiac: Present Reg Rate and Rhythm GI: Present soft, distention, tenderness (Diffuse, nonfocal) and hyperactive bowel sounds; Absent rebound Extremities: Present normal inspection and full ROM Skin: Present intact; Absent erythema Neuro: Present Grossly Intact, alert, awake, oriented x 3 and moves all extr emities Assessment and Plan *Assessment and plan (1) Acute diverticulitis: Status: Acute Category: Medical Code(s): K57.92 - Diverticulitis of intestine, part unspecified, without perforation or abscess without bleeding (2) Partial small bowel obstruction: Status: Acute Category: Medical Code(s): K56.600 - Partial intestinal obstruction, unspecified as to cause (3) C. difficile colitis: Status: Acute Category: Medical Code(s): A04.72 - Enterocolitis due to Clostridium difficile, not specified as recurrent Plan Keyur Arroyo is a 68-year-old male who presented with progressive abdominal pain for 3 days and admitted for diverticulitis and suspicion for partial SBO. Stool panel returned positive for C. difficile today. Initiated oral vancomycin. Continue clear liquid diet. Problems addressed as follows: #Acute diverticulitis # C. difficile colitis ? Presented with 3 days of worsening abdominal pain. Had a few episodes of nausea/vomiting. Having bowel movements, passing gas. -Stool panel returned positive for C. difficile. -White count improved from 22-15. Repeat CBC, CMP, magnesium ordered for the morning. Hemoglobin remains normal at 15. -Kidney function with slight elevation in BUN of 26, creatinine 1.1. Electrolytes relatively normal with potassium 4.0, magnesium 1.3. -Initiate oral vancomycin 125 mg p.o. every 6 hours, plan to complete 10 days -Surgery evaluated today due to concern for diverticulitis. Discussed case, no intervention at this time. Will continue to monitor with serial exam - Continue cefepime 2 g IV every 12 hours for diverticulitis in conjunction with Flagyl 500 mg every 8 hours. ? Clear liquid diet for now, advance as tolerated. #COPD: Stable, no oxygen requirement. DuoNebs as needed. #GERD: Continue home PPI. #Anxiety/depression: Continue home sertraline. #BPH: Resume home tamsulosin. Full code DVT prophylaxis: SCDs Clear liquid diet
[2024-06-04 20:00] VITALS: BP 136/67; PULSE 62; RESP 17; TEMP 36.7; O2SAT 94
[2024-06-04] MEDS: ATORVASTATIN 20MG TABLET 20 MG PO (22:53)
[2024-06-04] MEDS: TAMSULOSIN 0.4MG CAPSULE 0.4 MG PO (22:53)
[2024-06-05] MEDS: 0.9 % SODIUM CHLORIDE 1000ML 1,000 ML 100 ML IV (00:07)
[2024-06-05] MEDS: CEFEPIME HCL 2 GM in 0.9 % SODIUM CHLORIDE 100 ML IV (02:40)
[2024-06-05 04:00] VITALS: BP 106/57; PULSE 57; RESP 16; TEMP 36.9; O2SAT 94; BMI 33.5
[2024-06-05] MEDS: METRONIDAZ/SOD CHL 500 MG/100 ML PIGGYBACK 100 MG IV ×2 (04:06→10:37)
[2024-06-05] MEDS: FLUTICASONE/SALMETEROL 250/50MCG DISKUS 1 PUFF IH (06:19)
[2024-06-05 06:35] LABS: Basophils # 0.1 K/mm3 (0-0.2); Basophils % 0.9 % (0.1-2.0); Eosinophils # 0.3 K/mm3 (0.0-0.4); Eosinophils % 2.7 % (0.1-12.0); Hematocrit 43.1 % (42.0-52.0); Hemoglobin 14.1 g/dL (14.1-18.0); Mean Corpuscular HGB Conc 32.7 g/dL (31.8-35.4); Mean Corpuscular Hemoglobin 29.8 pg (27.0-31.2); Mean Corpuscular Volume 91.1 fl (80-94); Mean Platelet Volume 10.7 fl (7.4-10.4); Monocytes # 0.9 K/mm3 (0.1-1.0); Monocytes % 9.1 % (1.7-9.3); Platelet Count 270 K/mm3 (142-424); Red Blood Count 4.73 M/mm3 (4.60-6.20); Red Cell Distribution Width 13.2 % (11.5-17.5); White Blood Count 10.3 K/mm3 (4.8-10.8)
[2024-06-05 06:52] LABS: Alanine Aminotransferase 40 U/L (12-78); Albumin Level 3.3 g/dl (3.5-5.0); Anion Gap 10.7 mEq/L (5-15); Aspartate Amino Transferase 50 U/L (17-59); Bilirubin,Total 0.4 mg/dl (0.2-1.3); Blood Urea Nitrogen 18 mg/dl (9-20); Calcium 8.4 mg/dl (8.4-10.2); Carbon Dioxide 22 mmol/L (22.0-30.0); Chloride 109 mmol/L (98-107); Creatinine Clearance Estimated 90 mL/min (50-200); Estimated Glomerular Filt Rate 84 ml/min (>60); GFR (African American) 101 ML/MIN (>60); Glucose 94 mg/dl (74-100); Potassium 3.7 mmoL/L (3.5-5.1); Sodium 138 mmol/L (136-145); Total Protein,Serum 6.2 g/dl (6.3-8.2)
[2024-06-05 06:53] LABS: Albumin/Globulin Ratio 1.1 (1.1-1.8); Alkaline Phosphatase 65 U/L (38-126); Globulin 2.9 g/dL (1.3-3.2)
[2024-06-05 07:00] LABS: Magnesium 1.8 mg/dl (1.6-2.3)
[2024-06-05 08:00] VITALS: BP 114/65; PULSE 73; RESP 18; TEMP 36.8; O2SAT 94
[2024-06-05] MEDS: PANTOPRAZOLE 40MG TABLET 40 MG PO (09:09)
[2024-06-05] MEDS: GABAPENTIN 600MG TABLET 600 MG PO ×2 (09:09→13:01)
[2024-06-05] MEDS: SERTRALINE 50MG TABLET 50 MG PO (09:09)
[2024-06-05] MEDS: ASPIRIN EC 81MG TABLET 81 MG PO (09:09)
[2024-06-05] MEDS: VANCOMYCIN HCL 50MG/ML 150ML KIT 125 MG PO ×2 (09:10→13:01)
--- NOTE | 2024-06-05 11:32 | P.DS_ITS ---
General Admission date:: 06/03/24 Discharge date: 06/05/24 HPI HPI HPI: Patient is a 68-year-old male from [facility] who presented to his primary care provider today on 06/03/2024 with a greater than 1-2 week history of sharp and cramping abdominal pain. He had 1 episode of vomiting. Upon presentation to his primary care provider there was concern for possible peritonitis. He was sent to the emergency department where he underwent evaluation. He was found to have evidence of a leukocytosis. Imaging revealed findings consistent with mild diverticulitis with some fluid-filled dilated small bowel suspicious for enteritis or mild early partial obstruction. Given his clinical presentation with the severity of his abdominal pain and appreciable leukocytosis he was admitted for inpatient management. Patient has had prior appendectomy. He had screening colonoscopy with Dr. Monaco on 02/15/2024 at which time he had left-sided diverticulosis, grade 2-3 internal hemorrhoids for which he underwent band ligation, and he had a 5 mm ascending colon tubular adenoma. When asked if he has developed any diarrhea patient states that I keep the diarrhea . He has taken Metamucil for longstanding du ration. He states that he is unable to leave the house until dinnertime due to his bowels moving. Hospital Course Hospital Course Hospital Course: Keyur Arroyo is a 68-year-old male who presented with progressive abdominal pain for 3 days and admitted for diverticulitis and suspicion for partial SBO. Stool panel returned positive for C. difficile today. Initiated oral vancomycin. Able to advance diet. Feeling better after initiating treatment for C. difficile. Afebrile. White count improving. Stable on room air. No nausea or vomiting. Given improvement, will discharge home to complete antibiotics for diverticulitis and C. difficile. Follow-up with surgery as an outpatient to evaluate resolution of symptoms. Problems addressed as follows: #Acute diverticulitis # C. difficile colitis ? Presented with 3 days of worsening abdominal pain. Had a few episodes of nausea/vomiting. Having bowel movements, passing gas. CT of abdomen obtained showing partial SBO with diverticulitis. Started on empiric antibiotics with cefepime and Flagyl for diverticulitis. Stool panel found to be positive for C. difficile. White count showed improvement from 22 on admission to 10 by day of discharge. Given tolerance of p.o. intake, oral antibiotics, normalization of electrolytes and kidney function, patient stable to discharge home. Will complete 10 days total of vancomycin 125 mg orally 4 times a day and a 7-day course of antibiotics for diverticulitis with Levaquin 750 mg for 4 more days and Flagyl for 4 more days to complete 7 days total of therapy. Advance to regular diet. #COPD: Stable, no oxygen requirement. DuoNebs as needed. #GERD: Continue home PPI. #Anxiety/depression: Continue home sertraline. #BPH: Resume home tamsulosin. Total time spent on discharge 35 minutes in counseling, documentation, chart review, and direct care with patient. Exam Data for Last 24 hours Vital signs and Labs for Last 24 Hours: Temp Pulse Resp BP Pulse Ox O2 Del Method O2 Flow Rate 98.3 F 73 18 114/65 94 L Room Air 1 06/05/24 08:00 06/05/24 08:00 06/05/24 08:00 06/05/24 08:00 06/05/24 08:00 06/05/24 11:00 06/04/24 06:03 Laboratory Results - last 24 hr 06/04/24 08:46: Stl Aeromonas (PCR) Not detected, Stl C. cayetanensis PCR Not detected, Stool Rotavirus (PCR) Not detected, Stl Adenov F 40/41 PCR Not detected, Stool Astrovirus (PCR) Not detected, Stool Campylobacter PCR Not detected, Stl C.difficile Tox PCR Detected A, Stool Cryptosporidium PCR Not detected, Stl E.coli Shiga Tox PCR Not detected, Stool E coli O157 PCR Not detected, Stl Enterotoxigenic E PCR Not detected, Stool EPEC (PCR) Not detected, Stool EAEC (PCR) Not detected, Stl E. histolytica PCR Not detected, Stool Giardia Lamblia PCR Not detected, Stool Salmonella PCR Not detected, Stool Sapovirus (PCR) Not detected, Stl P. shigelloides PCR Not detected, Stl Shigella/EIEC PCR Not detected, St Y.enterocolitica PCR Not detected, Stool Vibrio (PCR) Not detected, Stl Vibrio cholerae PCR Not detected, Stl Norovirus GI/GII PCR Not detected 06/05/24 05:44: WBC 10.3 D, RBC 4.73, Hgb 14.1, Hct 43.1, MCV 91.1, MCH 29.8, MCHC 32.7, RDW 13.2, Plt Count 270, MPV 10.7 H, Neut % (Auto) 68.0, Lymph % (Auto) 19.0, [place] % (Auto) 9.1, Eos % (Auto) 2.7, Baso % (Auto) 0.9, Neut # (Auto) 7.0, Lymph # (Auto) 2.0, [place] # (Auto) 0.9, Eos # (Auto) 0.3, Baso # (Auto) 0.1, Sodium 138, Potassium 3.7, Chloride 109 H, Carbon Dioxide 22, Anion Gap 10.7, BUN 18 D, Creatinine 0.90, Estimated Creat Clear 90, Estimated GFR 84, Est GFR ( Amer) 101 D, Glucose 94, Calcium 8.4, Magnesium 1.8, Total Bilirubin 0.4, AST 50, ALT 40, Alkaline Phosphatase 65, Total Protein 6.2 L, Albumin 3.3 L D, Globulin 2.9, Albumin/Globulin Ratio 1.1 I & O for Last 24 hours: Intake & Output 06/02/24 06/03/24 06/04/24 06/05/24 23:59 23:59 23:59 23:59 Intake Total 200 / 200 1616 / 1616 3417 / 3417 Output Total 0 / 0 0 / 0 0 / 0 Balance 200 / 200 1616 / 1616 3417 / 3417 Weight 89.103 kg 89.107 kg 91.354 kg Constitutional Constitutional: no acute distress, obese, chronically ill appearing and cooperative *Routine HEENT Exam Head: Present normocephalic Eye: Present EOMI and PERRL ENT: Present mucous membranes moist *Routine Neck Exam Neck: Present supple; Absent lymphadenopathy *Routine Respiratory Exam Respiratory: Present CTA bilaterally *Routine Cardiovascular Exam Cardiovascular: Present RRR *Routine Abdominal Exam Abdominal: Present soft, normoactive bowel sounds, tenderness (Nonfocal) and distended; Absent rebound or guarding *Routine Rectal Exam Patient deferred: visual exam *Routine Exam Patient deferred: penile exam *Routine Extremities Exam Extremities: Absent cyanosis, clubbing or edema *Routine Skin Exam Skin: Present warm; Absent rash *Routine Neurological Exam Neurological: Present alert, oriented X3 and moving all extremities; Absent altered mental status Results Data Completed and Pending Labs on day of discharge: Labs from last 24 hours 06/05/24 06/04/24 05:44 08:46 WBC 10.3 D RBC 4.73 Hgb 14.1 Hct 43.1 MCV 91.1 MCH 29.8 MCHC 32.7 RDW 13.2 Plt Count 270 MPV 10.7 H Neut % (Auto) 68.0 Lymph % (Auto) 19.0 [place] % (Auto) 9.1 Eos % (Auto) 2.7 Baso % (Auto) 0.9 Neut # (Auto) 7.0 Lymph # (Auto) 2.0 [place] # (Auto) 0.9 Eos # (Auto) 0.3 Baso # (Auto) 0.1 Sodium 138 Potassium 3.7 Chloride 109 H Carbon Dioxide 22 Anion Gap 10.7 BUN 18 D Creatinine 0.90 Estimated Creat Clear 90 Estimated GFR 84 Est GFR ( Amer) 101 D Glucose 94 Calcium 8.4 Magnesium 1.8 Total Bilirubin 0.4 AST 50 ALT 40 Alkaline Phosphatase 65 Total Protein 6.2 L Albumin 3.3 L D Globulin 2.9 Albumin/Globulin Ratio 1.1 Stl Aeromonas (PCR) Not detected Stl C. cayetanensis PCR Not detected Stool Rotavirus (PCR) Not detected Stl Adenov F 40/41 PCR Not detected Stool Astrovirus (PCR) Not detected Stool Campylobacter PCR Not detected Stl C.difficile Tox PCR Detected A Stool Cryptosporidium PCR Not detected Stl E.coli Shiga Tox PCR Not detected Stool E coli O157 PCR Not detected Stl Enterotoxigenic E PCR Not detected Stool EPEC (PCR) Not detected Stool EAEC (PCR) Not detected Stl E. histolytica PCR Not detected Stool Giardia Lamblia PCR Not detected Stool Salmonella PCR Not detected Stool Sapovirus (PCR) Not detected Stl P. shigelloides PCR Not detected Stl Shigella/EIEC PCR Not detected St Y.enterocolitica PCR Not detected Stool Vibrio (PCR) Not detected Stl Vibrio cholerae PCR Not detected Stl Norovirus GI/GII PCR Not detected DS: Diagnosis Discharge Diagnosis (1) Acute diverticulitis: Status: Acute Code(s): K57.92 - Diverticulitis of intestine, part unspecified, without perforation or abscess without bleeding (2) Partial small bowel obstruction: Status: Acute Code(s): K56.600 - Partial intestinal obstruction, unspecified as to cause (3) C. difficile colitis: Status: Acute Code(s): A04.72 - Enterocolitis due to Clostridium difficile, not specified as recurrent Meds Home Medications and Allergies Home Medications ?Medication ?Instructions ?Recorded ?Confirmed ?Type atorvastatin 20 mg tablet 20 mg PO HS #90 tabs 05/01/24 06/03/24 Rx gabapentin 800 mg tablet 800 mg PO TID #90 tabs 05/01/24 06/03/24 Rx mecobalamin (vitamin B12) 1,000 1,000 mcg sublingual DAILY #90 tabs 05/01/24 06/03/24 Rx mcg disintegrating tablet,sublingual meloxicam 15 mg tablet 15 mg PO DAILY #90 tabs 05/01/24 06/03/24 Rx thiamine HCl (vitamin B1) 100 mg 100 mg PO BID SUPPLIMENT 90 days 05/01/24 06/03/24 Rx tablet #180 tabs albuterol sulfate 90 mcg/actuation 2 puff inhalation Q8HP PRN 06/03/24 06/03/24 History aerosol inhaler shortness of breath or wheezing aspirin 81 mg tablet,delayed 81 mg PO DAILY 06/03/24 06/03/24 History release (Ronit Low Dose Aspirin) budesonide-formoterol HFA 160 2 puff inhalation BID 06/03/24 06/03/24 History mcg-4.5 mcg/actuation aerosol inhaler cholecalciferol (vitamin D3) 50 50 mcg PO DAILY 06/03/24 06/03/24 History mcg (2,000 unit) tablet omeprazole 20 mg capsule,delayed 20 mg PO BID 06/03/24 06/03/24 History release sertraline 50 mg tablet 50 mg PO DAILY 06/03/24 06/03/24 History tamsulosin 0.4 mg capsule 0.4 mg PO HS 06/03/24 06/03/24 History levofloxacin 750 mg tablet 750 mg PO DAILY 4 days #4 tabs 06/05/24 Rx metronidazole 500 mg tablet 500 mg PO TID 5 days #13 tabs 06/05/24 Rx vancomycin 50 mg/mL oral solution 125 mg (2.5 mL) PO QID 9 days #90 06/05/24 Rx (Firvanq) mL New Prescriptions to Start Prescriptions: levofloxacin [place] metronidazole [place] vancomycin [Firvanq] [place] Allergies Allergy/AdvReac Type Severity Reaction Status Date / Time acetaminophen (From Lortab) Allergy Verified 06/03/24 09:55 hydrocodone (From Lortab) Allergy Verified 06/03/24 09:55 Penicillins Allergy Verified 06/03/24 09:55 Discharge Plan Disposition Patient Disposition: Home, Self-Care Condition: Fair Follow up Plan Follow up with: Eligio Garg MD [Staff Physician] - 06/25/24 9:15 am Sukhi Carmen MD [Primary Care Provider] - 06/17/24 10:20 am Prescriptions/Medication Reconciliation: New vancomycin [Firvanq] 50 mg/mL Recon Soln 125 mg PO QID 9 Days Qty: 90 0RF levofloxacin 750 mg tablet 750 mg PO DAILY 4 Days Qty: 4 0RF Rx Instructions: first dose 06/06/24 metronidazole 500 mg tablet 500 mg PO TID 5 Days Qty: 13 0RF Rx Instructions: first dose due evening of 06/05/24 Continued atorvastatin 20 mg tablet 20 mg PO HS Qty: 90 3RF gabapentin 800 mg tablet 800 mg PO TID Qty: 90 2RF mecobalamin (vitamin B12) 1,000 mcg tablet,disintegrating 1,000 mcg sublingual DAILY Qty: 90 3RF Rx Instructions: place tablet under tongue and allow to dissolve for at least30 secs before swallowing meloxicam 15 mg tablet 15 mg PO DAILY Qty: 90 0RF thiamine HCl (vitamin B1) 100 mg tablet 100 mg PO BID 90 Days Qty: 180 0RF aspirin [Ronit Low Dose Aspirin] 81 mg tablet,delayed release (DR/EC) 81 mg PO DAILY tamsulosin 0.4 mg capsule 0.4 mg PO HS omeprazole 20 mg capsule,delayed release(DR/EC) 20 mg PO BID albuterol sulfate 90 mcg/actuation HFA aerosol inhaler 2 puff IH Q8HP PRN (Reason: shortness of breath or wheezing) sertraline 50 mg tablet 50 mg PO DAILY budesonide-formoterol 160-4.5 mcg/actuation HFA aerosol inhaler 2 puff IH BID cholecalciferol (vitamin D3) 50 mcg (2,000 unit) tablet 50 mcg PO DAILY Problem Reconciliation Problems Reviewed?: Yes Patient Discharge Instructions ACTIVITY: Continue current activity DIET: continue same diet Patient Instructions: DI for Small Bowel Obstruction, DI for Diverticulitis, DI for Clostridioides difficile Infection Print Language: Slovak Providers Primary Care Provider: Sukhi Carmen Admit Provider: Den Jalloh Attending Provider: Den Jalloh
[2024-06-05] MEDS: metroNIDAZOLE 500 MG TABLET 250 MG PO (11:39)
--- NOTE | 2024-06-06 10:37 | SW/DCPLANNER ---
Spoke with patients on the phone. Patients stated that he is doing well. Patients stated that they are aware of his upcoming appointments. Patients stated that they were able to get his medicine picked up from clinic pharmacy. Patients stated that they have no concerns or questions at this time. Marva Mata
== END 2024-06-05 13:43 | disposition home or self-care (01) ==
LOC: ER 13:49 → 2ND 15:19
PROVIDERS: Internal Medicine Adolescent Medicine; Admitting Provider Student in an Organized Health Care Education/Training Program; Emergency Provider Student in an Organized Health Care Education/Training Program; PCP Family Medicine; Visit Provider Student in an Organized Health Care Education/Training Program
DX: K57.32 Diverticulitis of large intestine without perforation or abscess without bleeding (principal); K56.600 Partial intestinal obstruction, unspecified as to cause; A04.72 Enterocolitis due to Clostridium difficile, not specified as recurrent; J44.9 Chronic obstructive pulmonary disease, unspecified; I25.118 Atherosclerotic heart disease of native coronary artery with other forms of angina pectoris; K21.9 Gastro-esophageal reflux disease without esophagitis; F41.9 Anxiety disorder, unspecified; Z79.899 Other long term (current) drug therapy; Z90.49 Acquired absence of other specified parts of digestive tract; Z79.82 Long term (current) use of aspirin; Z79.51 Long term (current) use of inhaled steroids; Z88.0 Allergy status to penicillin; Z88.5 Allergy status to narcotic agent; Z88.8 Allergy status to other drugs, medicaments and biological substances; Z83.3 Family history of diabetes mellitus; Z82.49 Family history of ischemic heart disease and other diseases of the circulatory system; N40.0 Benign prostatic hyperplasia without lower urinary tract symptoms; F32.A Depression, unspecified; Z86.0100 Personal history of colon polyps, unspecified
CPT/HCPCS: 36415; 74177; 80053; 81001; 83605; 83690; 83735; 84484; 85007; 85025; 87507; 93005; 94640; 94760; 94761; 99291; G0378; J0692; J2270; J2405; J2543; J7030; J7120; Q9967

== ENCOUNTER 2024-06-26 14:08 | Outpatient (CLI) | payer MEDICARE, SELFPAY ==
[2024-06-26 14:20] LABS: Adenovirus F 40/41, stool Not Detected (NotDetected); Astrovirus Not Detected (NotDetected); Campylobacter Not Detected (NotDetected); Clostridium Difficile A/B, PCR Not Detected (NotDetected); Cryptosporidium Not Detected (NotDetected); Cyclospora Cayetanesis Not Detected (NotDetected); Entamoeba histolytica Not Detected (NotDetected); Enteroaggregative E coli Not Detected (NotDetected); Enteropathogenic E coli Not Detected (NotDetected); Enterotoxigenic E coli Not Detected (NotDetected); Giardia lamblia Not Detected (NotDetected); Norovirus Not Detected (NotDetected); Plesimonas Shigalloides, PCR Not Detected (NotDetected); Rotavirus A Not Detected (NotDetected); Salmonella, PCR Not Detected (NotDetected); Sapovirus Not Detected (NotDetected); Shiga-like toxin E coli Not Detected (NotDetected); Shigella Enterovasive E coli Not Detected (NotDetected); Vibrio Cholerae Not Detected (NotDetected); Vibrio, PCR Not Detected (NotDetected); Yersinia Entercolitica, PCR Not Detected (NotDetected)
== END 2024-06-26 23:59 | disposition home or self-care (01) ==
LOC: LAB 14:08
PROVIDERS: PCP Family Medicine; Visit Provider Surgery
DX: A04.72 Enterocolitis due to Clostridium difficile, not specified as recurrent (principal)
CPT/HCPCS: 87506

== ENCOUNTER 2024-08-16 07:04 | Outpatient (CLI) | payer MEDICARE, SELFPAY ==
--- NOTE | 2024-08-16 07:30 | CT_ITS ---
FINAL REPORT TECHNIQUE: Thin section axial images were obtained from the lung apices through the upper abdomen without contrast. This study was performed with techniques to keep radiation doses as low as reasonably achievable (ALARA). Individualized dose reduction techniques using automated exposure control or adjustment of mA and/or kV according to the patient's size were employed. CLINICAL HISTORY: pulmonary nodules, follow-up COMPARISON: 09/24/2021 FINDINGS: There is no mediastinal, hilar, or axillary lymphadenopathy. No pleural or pericardial effusion. There is a 7 mm nodule in the left lower lobe which is unchanged and seen on series 2 image 58. Other smaller nodules in the left lower lobe are unchanged. Fibrotic changes, bilaterally, are stable. No new mass or nodule is identified. There is no new consolidation. Limited, unenhanced evaluation of the upper abdomen is without acute abnormality. There is no acute osseous abnormality. IMPRESSION: Stable pulmonary nodules with no new nodule identified. Continued follow-up is recommended. Reviewed, Interpreted and Dictated by Gwendolyn Gross MD Transcribed by Izabel Archibald Authenticated and [facility]
== END 2024-08-16 23:59 | disposition home or self-care (01) ==
LOC: RAD 07:05
PROVIDERS: PCP Family Medicine; Visit Provider Family Medicine
DX: R91.8 Other nonspecific abnormal finding of lung field (principal)
CPT/HCPCS: 71250

== ENCOUNTER 2024-11-25 09:42 | Outpatient (CLI) | payer MEDICARE, SELFPAY ==
[2024-11-25 18:01] LABS: Albumin Level 4.4 g/dl (3.5-5.0); Chloride 106 mmol/L (98-107)
[2024-11-25 18:02] LABS: Potassium 4.9 mmoL/L (3.5-5.1); Sodium 140 mmol/L (136-145)
[2024-11-25 18:04] LABS: Alanine Aminotransferase 39 U/L (12-78); Anion Gap 13.9 mEq/L (5-15); Aspartate Amino Transferase 46 U/L (17-59); Blood Urea Nitrogen 19 mg/dl (9-20); Carbon Dioxide 25 mmol/L (22.0-30.0); Creatinine,Serum 1.10 mg/dl (0.66-1.25); Estimated Glomerular Filt Rate 66 ml/min (>60); GFR (African American) 80 ML/MIN (>60)
[2024-11-25 18:05] LABS: Albumin/Globulin Ratio 1.4 (1.1-1.8); Alkaline Phosphatase 103 U/L (38-126); Bilirubin,Total 0.8 mg/dl (0.2-1.3); Calcium 9.0 mg/dl (8.4-10.2); Cholesterol 133 mg/dl (140-200); Globulin 3.2 g/dL (1.3-3.2); Glucose 97 mg/dl (74-100); HDL Cholesterol 64 mg/dl (40-60); Total Protein,Serum 7.6 g/dl (6.3-8.2); Triglycerides 52 mg/dl (30-150)
--- OUTSIDE RECORDS SUMMARY | 2024-11-27 10:26 | XMS_ITS | CCD ---
Author Organization Unknown Care Team Providers Care Filler Mixer Name Role Phone Unavailable Primary Care Provider Unavailabl e Unavailable Chronic Care Management Unavaila ble Summary Purpose DataExchange Insurance Providers Payer name Policy type / Coverage type Covered republican ID Effective Begin Date Effective End Date [facility] [id number] Unknown Unknown Family History Family History data not found Medication Administered No Medication Administered data Reason For Visit No Reason For Visit data Medical Equipment No Medical Equipment data Advance Directives No Advance Directive data
--- OUTSIDE RECORDS SUMMARY | 2024-11-27 10:26 | XMS_ITS | CCD ---
Author Organization Unknown Care Team Providers Care Clipper Machine Name Role Phone Unavailable Primary Care Provider Unavailabl e Unavailable Chronic Care Management Unavaila ble Summary Purpose DataExchange Insurance Providers Payer name Policy type / Coverage type Covered alliance party ID Effective Begin Date Effective End Date [facility] [id number] Unknown Unknown Family History Family History data not found Medication Administered No Medication Administered data Reason For Visit No Reason For Visit data Medical Equipment No Medical Equipment data Advance Directives No Advance Directive data
== END 2024-11-25 23:59 | disposition home or self-care (01) ==
LOC: LAB.DROPOF 11-27 09:19
PROVIDERS: PCP Family Medicine; Visit Provider Family Medicine
DX: Z12.5 Encounter for screening for malignant neoplasm of prostate (principal); E78.5 Hyperlipidemia, unspecified
CPT/HCPCS: 80053; 80061; G0103

== ENCOUNTER 2024-12-18 13:23 | Emergency (ER) | payer MEDICARE, SELFPAY ==
--- NOTE | 2024-12-18 13:31 | XR_ITS ---
FINAL REPORT CLINICAL HISTORY: Third digit degloving injury/open fracture FINDINGS: RIGHT HAND Three views demonstrate fracture dislocation of the third PIP with fracture of the third middle phalanx. No radiopaque foreign body identified. IMPRESSION: Fracture/dislocation of the third digit. Reviewed, Interpreted and Dictated by Carlos Manuel Sal MD Transcribed by Caroline Oliver Authenticated and [facility]
[2024-12-18 13:32] VITALS: BP 178/111; PULSE 75; RESP 17; TEMP 36.7; O2SAT 95; BMI 29.5
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
[2024-12-18] MEDS: TET/DIPHTH/PERT-ADULT 0.5ML SYRINGE 0.5 ML IM (13:45)
--- NOTE | 2024-12-18 13:50 | PC.NURSE ---
I called radiology and requested they make a disc of the pts scans and power share to [facility]
[2024-12-18] MEDS: ONDANSETRON 4MG/2ML VIAL 4 MG IV (13:52)
[2024-12-18] MEDS: FENTANYL 100MCG/2ML VIAL 50 MCG IV (13:54)
--- NOTE | 2024-12-18 13:55 | PC.NURSE ---
currently on phone with [facility] per CRISTINE Cole for pt transfer for open fx of 3rd digit, finger sheath involvement
--- NOTE | 2024-12-18 14:01 | PC.NURSE ---
I spoke with [facility]. They are going to make the antibiotic and send it down.
[2024-12-18] MEDS: TRANEXAMIC ACID 1,000 MG/10 ML VIAL 1000 MG TP (14:19)
--- NOTE | 2024-12-18 14:35 | PC.NURSE ---
call made to [facility] for pt transfer to [facility].
--- OUTSIDE RECORDS SUMMARY | 2024-12-18 14:49 | XMS_ITS | CCD ---
Author Organization Unknown Care Team Providers Care Programmer Numerical Control Name Role Phone Unavailable Primary Care Provider Unavailabl e Unavailable Chronic Care Management Unavaila ble Summary Purpose DataExchange Insurance Providers Payer name Policy type / Coverage type Covered republican ID Effective Begin Date Effective End Date [employer] [id number] Unknown Unknown Family History Family History data not found Medication Administered No Medication Administered data Reason For Visit No Reason For Visit data Medical Equipment No Medical Equipment data Advance Directives No Advance Directive data
[2024-12-18 14:59] VITALS: BP 146/84; PULSE 68; RESP 16; TEMP 36.7; O2SAT 95
[2024-12-18 15:34] LABS: Hepatitis C Ab Qual. W/ RFX NEGATIVE (Negative)
== END 2024-12-18 15:00 | disposition other institution (70) ==
PROVIDERS: Physician Assistant; Emergency Provider Student in an Organized Health Care Education/Training Program; PCP Family Medicine
DX: S62.622B Displaced fracture of middle phalanx of right middle finger, initial encounter for open fracture (principal); W26.8XXA Contact with other sharp object(s), not elsewhere classified, initial encounter
CPT/HCPCS: 73130; 86803; 87389; 90471; 90715; 96365; 96375; 99285; J0690; J2405; J3010